=== PATIENT | male | born 1955 | race Caucasian/White ===

== ENCOUNTER 2017-03-22 09:51 | Day surgery (SDC) | payer BC, OTHER ==
--- NOTE | 2017-03-12 10:18 | HP ---
PREOPERATIVE HISTORY AND PHYSICAL: DATE OF ADMISSION: 03/22/17 PROVIDER: Sang Tai MD * (DICTATED BY GABRIELE OLIVEIRA) CHIEF COMPLAINT: Left foot pain. HISTORY OF PRESENT ILLNESS: Richie is a 61-year-old gentleman who has had ongoing complaints of pain at the medial eminence of his left forefoot. He has had a bunion for quite some time but he feels as though this has gotten much bigger and more painful. Footwear is hard to find. He is interested now in surgical intervention for correction of the problem. PAST MEDICAL HISTORY: Hypertension and asthma. PAST SURGICAL HISTORY: Two knee arthroscopies, bunionectomy on the right, tonsillectomy, total hip arthroplasty and carpal tunnel release. He reports no complications with the anesthesia with those procedures. CURRENT MEDICATIONS: 1. Atorvastatin. 2. Calcium 40 mg p.o. every day. 3. Ramipril 10 mg p.o. every day. 4. Viagra 100 mg by mouth as needed. 5. ProAir HFA 108 mcg inhaled two puffs every 6 hours as needed. 6. Zyrtec as needed. ALLERGIES: PENICILLIN, which causes rash. 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 He lives with his . He denies tobacco use. He drinks alcoholic beverages occasionally. REVIEW OF SYSTEMS: Constitutional: Negative for recent hospitalizations, fevers, chills, night sweats or weight loss. Head: Negative for headaches, lightheadedness, or balance problems. Cardiovascular: Negative for chest or arm pain with exertion, history of heart attack, heart murmur, heart palpitations. Positive for high blood pressure. Negative for embolism or deep vein thrombosis. Respiratory: Negative for chronic cough, shortness of breath with exertion. Positive for asthma. Negative for COPD. Gastrointestinal: Negative for heartburn, nausea, vomiting, diarrhea, constipation or GERD. Genitourinary: Negative for nighttime urination, frequency of urination, urinary tract infections or kidney problems. Musculoskeletal: Negative for chronic back pain or recent fractures. Skin: Negative for rashes, lesions, lumps or sores. Neurologic: Negative for seizures, stroke, epilepsy, depression or anxiety. Endocrine: Negative for diabetes or thyroid problems. Hematology: Negative for easy bleeding, bruising, or anemia. PHYSICAL EXAMINATION GENERAL: He is a well-developed, well-nourished, pleasant male in no acute distress at rest. He is alert and oriented x3, with appropriate mood and affect. VITAL SIGNS: The patient is 5 feet 8 inches, 269 pounds, blood pressure 124/82 , pulse is 68. HEENT: Normocephalic and atraumatic. Hearing and vision are grossly intact. NECK: His trachea is midline. RESPIRATORY: Lungs clear to auscultation bilaterally. No wheezes, rales, or rhonchi. CARDIOVASCULAR: Regular rate and rhythm. No murmurs, rubs or gallops. Normal S1 and S2. ABDOMEN: Soft, nondistended, nontender. Normal bowel sounds. EXTREMITIES: Exam of the left lower extremity, skin is intact without abrasions or open wounds. He has a hallux valgus deformity with some erythema over the first MTP joint but no breakdown of the skin. He has a neutral hindfoot alignment. He has a 5/5 strength and range of motion. His sensation to light touch is intact. He has 2+ dorsalis pedis pulse. IMAGING: Three views of the left foot show a prominent medial eminence with some mild hallux valgus deformity. There is no significant widening of the intermetatarsal angle. IMPRESSION: Left foot hallux valgus deformity. PLAN: The patient has to undergo left foot bunion repair with chevron osteotomy by Dr. Tai on 03/22/17. The risks, benefits, and postoperative course were discussed with the patient at length and he would like the patient proceed. Prescription for oxycodone was sent to his pharmacy for postoperative pain. All of his questions were answered to his full satisfaction. He is understanding to call should he develop any problems or concerns. GABRIELE OLIVEIRA [id number]/[facility] #: [id number] EULALIA
[~2017-03-22 09:51] MED LIST: Buffered Lidocaine 0.9% SYRIN* 5 ML/SYR SYRINGE INTRADERM ONE; Buffered Lidocaine 0.9% SYRIN* 5 ML/SYR SYRINGE ONE; Clindamycin 900 MG IVPREMIX(* 900 MG/50 ML SDV IV ONE; KETAMINE HCL* 50 MG/ML 10 ML VIAL ONE; Lidocaine 2% PF * 5 ML VIAL ONE; Midazolam* 1 MG/ML 2 ML VIAL (2 MG) ONE; Propofol* 10 MG/ML 20 ML BTL IV PUSH ONE; Propofol* 500 MG/50 ML BTL ONE; fentaNYL* 50 MCG/ML 2 ML VIAL (100 MCG VIAL) ONE
[2017-03-22] MEDS ORDERED: Bupivacaine 0.5% SDV PF* 30 ML VIAL ONE (10:40)
[2017-03-22] MEDS ORDERED: HYDROmorphone INJ* 1 MG/ML CARPUJECT SYRINGE IV PRN (11:50)
[2017-03-22] MEDS ORDERED: oxyCODONE/Acetamin 5/325 MG* TAB PO PRN (11:50)
[2017-03-22] MEDS ORDERED: Ondansetron INJ* 2 MG/ML VIAL IV PRN (11:50)
[2017-03-22] MEDS ORDERED: Acetaminophen TAB* 325 MG PO PRN (11:50)
[2017-03-22] MEDS ORDERED: fentaNYL* 50 MCG/ML 2 ML VIAL (100 MCG VIAL) IV PRN (11:50)
[2017-03-22] MEDS ORDERED: Ibuprofen TAB* 600 MG PO PRN (11:50)
[2017-03-22] MEDS ORDERED: Ondansetron INJ* 2 MG/ML VIAL ONE (11:53)
[2017-03-22] MEDS ORDERED: Ketorolac INJ* 30 MG/ML 1 ML VIAL ONE (11:53)
[2017-03-22 12:48] VITALS: BP 135/81
--- NOTE | 2017-03-23 08:00 | OP ---
DATE OF OPERATION: 03/22/17 - [facility] DATE OF : 55 SURGEON: Sang Tai MD MANAGER ROOFING: Sumaya Ramirez PA-C ANESTHESIOLOGIST: Rody Diallo MD ANESTHESIA: MAC PRE-OP DIAGNOSIS: Left hallux valgus painful. 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 OPERATIVE PROCEDURE: Debridement gout deposit and Abdalla bunion repair. DESCRIPTION OF PROCEDURE: The patient was taken to the operating room where dorsal longitudinal incision was made in the first webspace. Through this incision, we released the adductor tendon and created a lateral capsulotomy and incised over the dorsal aspect of the lateral metatarsal. This wound was then closed with 3-0 Vicryl and 4-0 nylon. The medial longitudinal incision was made over the medial eminence with dorsal plantar flap raised to protect the dorsal and medial plantar cutaneous nerves. We incised transversally at the joint level and carried this incision across the top proximally in L-shaped fashion. We flipped the capsule plantarward and noticed a large tophaceous deposit around the medial eminence. This was debrided with a #15 blade and thorough irrigation. We removed a copious amount of medial eminence with microsagittal saw, sent this to pathology along with the tophaceous deposit. Because the involved in this area I elected not to do the osteotomy. He had obtained a nice correction at this point anyway. We removed redundant medial capsule repairing this with 0 Vicryl sutures, and 2-0 Vicryl for the subcu, and 3-0 nylon for the skin, and compression dressing applied. [id number]/[facility] #: [id number] [facility]
== END 2017-03-22 13:13 | disposition home or self-care (01) ==
LOC: OR 09:51
PROVIDERS: ATTEND Orthopaedic Surgery
DX: M20.12 Hallux valgus (acquired), left foot (principal); M1A.0721 Idiopathic chronic gout, left ankle and foot, with tophus (tophi); I10 Essential (primary) hypertension; J45.909 Unspecified asthma, uncomplicated; E78.5 Hyperlipidemia, unspecified; Z88.0 Allergy status to penicillin
CPT/HCPCS: 88304; 88311; J1885; J2250; J2405; J2704; J3010

== ENCOUNTER 2017-06-23 10:45 | Day surgery (SDC) | payer BC, OTHER ==
[~2017-06-23 10:45] MED LIST changes: -Buffered Lidocaine 0.9% SYRIN* 5 ML/SYR SYRINGE ONE; -Clindamycin 900 MG IVPREMIX(* 900 MG/50 ML SDV IV ONE; -KETAMINE HCL* 50 MG/ML 10 ML VIAL ONE; -Lidocaine 2% PF * 5 ML VIAL ONE; -Midazolam* 1 MG/ML 2 ML VIAL (2 MG) ONE; -Propofol* 10 MG/ML 20 ML BTL IV PUSH ONE; -Propofol* 500 MG/50 ML BTL ONE; -fentaNYL* 50 MCG/ML 2 ML VIAL (100 MCG VIAL) ONE
[2017-06-23] MEDS ORDERED: Buffered Lidocaine 0.9% SYRIN* 5 ML/SYR SYRINGE ONE (10:51)
[2017-06-23] MEDS ORDERED: Clindamycin 900 MG IVPREMIX(* 900 MG/50 ML SDV IV ONE (10:51)
[2017-06-23] MEDS ORDERED: Midazolam* 1 MG/ML 2 ML VIAL (2 MG) ONE (12:18)
[2017-06-23] MEDS ORDERED: EPINEPHRINE 1 MG/ML 1 ML VIAL ONE ×3 (12:38→14:21)
[2017-06-23] MEDS ORDERED: EPINEPHrine SYR 0.1 MG/ML* (1:10,000) SYRINGE ONE (12:38)
[2017-06-23 19:41] VITALS: BP 154/89
--- NOTE | 2017-06-30 03:37 | OP ---
DATE OF OPERATION: 06/23/17 [facility] DATE OF : 55 SURGEON: Jose Woodall MD CAT SITTER: GABRIELE Stanford. A physician orthopaedic physician assistant was required for the length of the procedure for positioning, assistance with instrumentation, and closure. ANESTHESIOLOGIST: Dr. Ortiz. ANESTHESIA: General anesthesia, regional interscalene block anesthesia. PRE-OP DIAGNOSES: 1. Left shoulder massive rotator cuff tear. 2. Left shoulder acromioclavicular joint arthritis. 3. Left shoulder subacromial impingement. 4. Left shoulder possible proximal biceps tendinosis. POST-OP DIAGNOSES: 1. Left shoulder massive rotator cuff tendon tear. 2. Left shoulder acromioclavicular joint osteoarthritis. 3. Left shoulder subacromial impingement. 4. No biceps tendinosis, left shoulder. No superior labral tear. OPERATIVE PROCEDURES: 1. Left shoulder arthroscopic rotator cuff tendon repair, massive, supraspinatus, infraspinatus. 2. Left shoulder arthroscopic subacromial decompression. 3. Left shoulder arthroscopic distal clavicle resection. 4. Modifier 22. I will apply this code to the billing for this procedure due to the significant difficulty of the rotator cuff repair given the retracted, atrophied nature of the patient's rotator cuff. Much dissection of the rotator cuff was required as well as 2 temporary traction stitches, followed by 4 anchors. ANTIBIOTICS: Clindamycin 900 mg IV. IV FLUIDS: Lactated Ringer's 1600 cc. COMPLICATIONS: None. SPECIMEN: None. IMPLANTS: Three Mitek Jed and Jed 5.5 mm triple loaded suture anchors. One Mitek 5.5 mm knotless anchor. ESTIMATED BLOOD LOSS: Minimal. 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 See history and physical and prior clinic notes for complete history. The patient responded insufficiently to the nonoperative management and opted for surgical treatment. Interestingly, the patient had a history of spontaneous distal biceps tendon rupture on this left side about the elbow. We spoke about evaluation and treatment of the biceps tendon. This was likely going to be treated with biceps release, but only as needed. Discussed risks and potential complications of surgery preoperatively. These included bleeding, infection, nerve or blood vessel injury, shoulder pain, stiffness, osteoarthritis, rotator cuff rerupture, hardware complications. Given the retracted nature of this patient's rotator cuff tear and some fatty infiltration of his muscle, there were concerns about the possible repairability of the tendon. The patient's tear is minor, was noted not to be torn, but was noted to have complete infiltration with fat, atrophy. DESCRIPTION OF PROCEDURE: Preoperatively in preoperative holding, consent was signed by the patient. Operative extremity was marked in preoperative holding. The patient was brought back to the operating room and had an inter-scalene regional nerve block performed by Dr. Ortiz. The patient was sedated and intubated. He was converted to the lateral decubitus position with the left shoulder up. Axillary roll was placed. All bony prominences were padded. Beanbag was insufflated. Shoulder was placed in the appropriate position of forward flexion and abduction with longitudinal traction with 15 pounds of weight. The left shoulder was prepped with ChloraPrep and then draped. Surgical time- out was performed. The glenohumeral joint was entered with 25 cc to 30 cc of normal saline. I then established a posterior glenohumeral joint portal using standard technique. Diagnostic arthroscopy was commenced. The patient had some wear of the articular cartilage in the glenohumeral joint. No clear superior labral tear or biceps tendinosis present. Easily I could view into the subacromial space and there was visible and massive rotator cuff tear. No subscapularis tear was noted and I visualized in a variety of positions in the humeral head. An anterior glenohumeral joint portal was established under direct visualization. I entered an arthroscopic probe as well as an arthroscopic shaver through the anterior portal and used this to improve my visualization of the subscapularis, which again confirmed no tear. I probed the superior labrum and the biceps and found no injury. Therefore, this was not treated. No loose bodies. No significant labral tears. I removed instruments and replaced my posterior cannula just under the acromion. I placed a 7-mm Mitek plastic cannula into the subacromial space anteriorly. I created a lateral subacromial portal under direct visualization and used an arthroscopic shaver brought in from laterally to debride subacromial bursitis. The patient actually had intact the anterior aspect of his supraspinatus tendon. This was a surprise as I had not appreciated this on MRI imaging preoperatively. However, he had a massive tear of the posterior supraspinatus and much of the infraspinatus present. The patient had some posteroinferior rotator cuff present, but it seemed very wispy and unsubstantial. This would be consistent with the quality of the tissue of the teres minor visualized on preoperative MRI imaging. The patient did have supraspinatus and infraspinatus that had retracted to a medial to the glenoid. I created a posterolateral portal and visualized alternatively through the posterior, posterolateral, and lateral portal. I spent a considerable amount of time fraying up the retracted rotator cuff tendon tissue. I did so using a switching stick, an arthroscopic shaver, and a vapor device. Some minimal bleeding was encountered superior to the rotator cuff tendon and muscle, which I used vapor electrocautery to stop. I placed 2 traction stitches in the retracted rotator cuff tendon tissue. I placed that through my lateral subacromial portal site and through an anterolateral subacromial portal that I created. With the traction stitches placed and my orthopaedic physician assistant pulling on traction, I was able to continue to free up the rotator cuff tendon tissue. This rotator cuff tendon tissue was notable for its relative lack of mobility versus the rotator cuff tendons I have encountered in the past, retracted similarly. I debrided a significant amount of bursa superior to the tendon and there was clearly no geometry of the tear not appreciated. With the traction stitch in place, I could tell that the tendon could barely be lateralized to the humeral head, was clearly under some tension, but I decided to attempt a repair rather than knot. At this point, I considered a side-to- side stitch but I knew that that would significantly tighten the shoulder. The patient did not have much anterior supraspinatus intact and his posteroinferior cuff tissue seemed to be a very poor quality. I created a posterolateral skin incision and placed through it a rotator cuff anchor, 5.5 mm after punching the bone. This was placed in the medial most aspect of the rotator cuff tendon footprint of the greater tuberosity. This first anchor was placed anteriorly to where my traction stitches were bringing the cuff to bone. It should be stated that prior to this commencement of my rotator cuff repair, I had debrided the greater tuberosity footprint with an arthroscopic shaver and then stephanie. I had also performed my subacromial decompression, removing the inferior hook of the anterior aspect of the acromion with a stephanie, removing at least 6 mm of bone. That was done working through the lateral subacromial portal. Back to my rotator cuff repair. I placed that first suture anchor. I then placed 3 horizontal mattress stitches in the rotator cuff tissue using the Expressew Mitek device. I tied these stitches as I went. I left the sutures uncut, anticipating the use of a lateral row anchor. These first 3 stitches brought the tendon to bone. At this point, I took out the traction stitches and I placed a second rotator cuff tendon suture anchor, triple loaded, posterior to the first one in the medial most aspect of the rotator cuff footprint. I used an 3dim suture passer device to place either 2 or 3 horizontal mattress stitches in the rotator cuff tendon. The repair worked decently stable, although clearly under more tension than my standard rotator cuff tendon repair. At this point, I decided to place a lateral row anchor. It should be noted that I placed a 7-mm Mitek plastic cannula into a lateral portal to do my suture passing. I placed a lateral row anchor anterior and lateral to the first 2 suture anchors. I took 4 sutures from that medial row and tightened them nicely, applying a knotless 5.5 mm suture anchor anterior and lateral. This provided some more support. I next placed a fourth rotator cuff anchor, this one triple loaded. I placed that about the posterosuperior greater tuberosity and placed a simple stitch into the retracted tendon as well as a [id number] stitch or 2 to allow these converging rotator cuff tendon tissues to better oppose. The repair appeared stable with movement of the shoulder. With probing, the repair was not as watertight as is typically seen in my repairs, but this was an incredibly retracted taut tendon that we succeeded in bringing tendon to bone for a repair. With the rotator cuff tendon repair finished, I proceeded to the acromioclavicular joint. There was much bursitic tissue about it. I debrided that with vapor electrocautery. Then I proceeded to remove 8 mm at the distal end of the clavicle with an arthroscopic stephanie. Instruments and fluid were removed from the subacromial space. Skin incisions were closed with figure-eight stitches and figure-twelve stitches using nylon 4- 0 suture. Xeroform, 4x4s, ABDs, foam tape. Sling with abduction pillow. The patient was awakened and extubated and brought to the PACU. The patient was given a cooling unit postoperatively in the PACU. DISPOSITION: The patient was to be discharged home with Percocet as needed for pain control, aspirin for DVT prophylaxis, and Bactrim for infection prophylaxis. Physical therapy to start the following week. The patient will follow up with me in 10 to 14 days postoperatively for a wound check and removal of stitches. I spoke to the patient's about the length of surgery and the difficulty to repair given the retracted immobile tissue. The length of the surgery can correspond with increased soft tissue swelling about the shoulder and some swelling soft tissues moving down the arm and legs and I told the patient's to watch for that. The tautness of the repair means both postoperative stiffness and both postoperative rerupture are concerns. [id number]/[facility] #: [id number] MTDD
== END 2017-06-23 19:41 | disposition home or self-care (01) ==
LOC: OR 10:45
PROVIDERS: ATTEND Orthopaedic Surgery
DX: S46.012A Strain of muscle(s) and tendon(s) of the rotator cuff of left shoulder, initial encounter (principal); M75.42 Impingement syndrome of left shoulder; M19.012 Primary osteoarthritis, left shoulder; M75.22 Bicipital tendinitis, left shoulder; X50.0XXA Overexertion from strenuous movement or load, initial encounter; Y92.89 Other specified places as the place of occurrence of the external cause; Y99.0 Civilian activity done for income or pay; I10 Essential (primary) hypertension; E78.00 Pure hypercholesterolemia, unspecified; M10.9 Gout, unspecified
CPT/HCPCS: J0171; J2250

== ENCOUNTER 2017-09-28 08:01 | Emergency (ER) | payer BC ==
[2017-09-28 08:11] VITALS: BP 157/92
--- OUTSIDE RECORDS SUMMARY | 2017-09-28 08:11 | XMS REPORT ---
:1955 External Reference #:[id number] Author Organization [facility] Address [address] [address] Phone [phone] Care Team Providers Name Role Phone aZki Bang III, MD Primary Care Physician Unavailable Payers Type Date Identification Numbers Payment Provider Subscriber Commercial Policy Number: [id number] [facility] Richie Alicea PayID: [id number] [address] [place] [address] Workers Onset: 2013 Policy Number: State Insurance Richie Sultana Compensation [id number] [facility] Christopher Group Number: [id number] [address] [address] PayID: [place] [address] Workers Compensation Onset: 2013 Policy Number: [facility] Richie Alicea [id number] Ins. [facility] PayID: [id number] [facility] [address] [place], [place] Workers Compensation Effective: 2017 Policy Number: [facility] Richie Alicea [id number] Onset: 2017 Group Number: [id number] [address] [address] Group Name: [phone] [place] [address] [id number] Problems Date Description Provider Status Onset: 11/09/2013 Benign essential hypertension Zaki Bang M.D. Active Onset: 11/09/2013 Pure hypercholesterolemia Zaki Bang M.D. Active Onset: 06/18/2016 Essential hypertension Zaki Bang M.D. 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 Use Drinks 6 Alcoholic Beverages Per Week Smoking Patient has never smoked Exercise Type/Frequency Exercises sporadically Allergies, Adverse Reactions, Alerts Date Description Reaction Status Severity Comments 08/24/2013 Penicillin active Medications Medication Date Status Form Strength Qnty SIG Indications Ordering Provider Naproxen 04/08/ Active Tablets 375mg 30tab 1 by mouth M20.12 Sang 2016 s twice a day Rand Tai Atorvastatin 11/11/ Active Tablets 40mg 90tab 1 by mouth Zaki Ko Calcium 2016 s every day Rand Bang Ramipril 12/13/ Active Capsules 10mg 90cap Take 1 Zaki EPetra 2014 s Tablet By Beti, Mouth Once M.D. Daily Viagra / Active Tablets 100mg 12tab by mouth 0.5 Zaki E. 0000 s or 1 tab 1h Beti, before M.D. intercourse Proair HFA / Active Aerosol 108(90Base inhale 2 Unknown 0000 ) mcg/Act puffs by mouth every 6 hours if needed for wheezing Multi For Him / Active Tablets 1 by mouth Unknown 50+ 0000 every day Sulfamethoxazo 06/23/ Hx Tablets 800-160mg 10tab take one tab Jose le/Trimethopri 2016 - s by brian WATSON 07/05/ twice a day Jose C2017 for 5 days Percocet 06/21/ Hx Tablets 5-325mg 42tab 1 - 2 tabs Jose 2016 - s by mouth F 08/28/ every 4 - 6 Jose C2017 hours as needed for pain. Aspirin Ec 06/21/ Hx Tablets DR 325mg 30tab take 1 tab Jose 2016 - s by mouth F 08/28/ every day x 2017 14 days. with food. Bactrim DS 04/27/ Hx Tablets 800-160mg 28tab 1 by mouth Sang 2016 Wesly murray twice a day [place] 06/14/ Rand 2017 Oxycodone HCL 03/02/ Hx Tablets 5mg 40tab 1-2 tabs by Sang 2016 - mouth every [place] 04/08/ 4-6 hours as [place] 2017 needed for post op pain do not fill until 03/19/17 Ramipril / Hx 10mg 1 po qd Unknown 0000 - 2014 Lipitor / Hx Tablets 40mg 90tab 1 by mouth Zaki murray every day Beti 11/11/ Rand 2017 Immunizations CPT Code Status Date Vaccine Lot # [id number] Given 08/16/2014 Tdap - Tetanus/Diptheria/Acellular Pertussis Vital Signs Date Vital Result Comment 08/30/2017 Height 67 inches 5'7" Weight 287.00 lb Heart Rate 97 /min BP Systolic 141 mmHg BP Diastolic 88 mmHg Respiratory Rate 16 /min BMI (Body Mass Index) 44.9 kg/m2 08/02/2017 Height 67 inches 5'7" Weight 287.00 lb Heart Rate 68 /min BP Systolic 120 mmHg BP Diastolic 76 mmHg Respiratory Rate 16 /min Body Temperature 97.6 F Pain Level 2 BMI (Body Mass Index) 44.9 kg/m2 07/06/2017 Height 67 inches 5'7" Weight 284.00 lb Heart Rate 78 /min Respiratory Rate 14 /min Body Temperature 98.8 F Pain Level 2 BMI (Body Mass Index) 44.5 kg/m2 06/15/2017 Height 67 inches 5'7" Weight 284.00 lb Heart Rate 85 /min BP Systolic Sitting 145 mmHg BP Diastolic Sitting 100 mmHg Body Temperature 98.1 F O2 % BldC Oximetry 97 % BMI (Body Mass Index) 44.5 kg/m2 06/03/2017 Height 67 inches 5'7" Weight 270.00 lb Heart Rate 86 /min Respiratory Rate 15 /min Body Temperature 97.5 F Pain Level 2 BMI (Body Mass Index) 42.3 kg/m2 06/02/2017 Height 67 inches 5'7" Weight 266.00 lb Heart Rate 84 /min BP Systolic 120 mmHg BP Diastolic 80 mmHg Body Temperature 98.3 F Pain Level 0 BMI (Body Mass Index) 41.7 kg/m2 05/12/2017 Height 67 inches 5'7" Weight 266.00 lb BP Systolic 114 mmHg BP Diastolic 82 mmHg Respiratory Rate 20 /min Body Temperature 97.3 F Pain Level 0 BMI (Body Mass Index) 41.7 kg/m2 04/27/2017 Height 67 inches 5'7" Weight 266.00 lb Heart Rate 68 /min BP Systolic 119 mmHg BP Diastolic 81 mmHg Body Temperature 97.3 F Pain Level 0 BMI (Body Mass Index) 41.7 kg/m2 04/20/2017 Height 67 inches 5'7" Weight 266.00 lb BP Systolic 120 mmHg BP Diastolic 60 mmHg Respiratory Rate 16 /min Body Temperature 97.8 F Pain Level 1 BMI (Body Mass Index) 41.7 kg/m2 04/08/2017 Height 67 inches 5'7" Weight 266.00 lb Heart Rate 88 /min BP Systolic 130 mmHg BP Diastolic 88 mmHg Body Temperature 97.1 F Pain Level 0 BMI (Body Mass Index) 41.7 kg/m2 03/31/2017 Height 67 inches 5'7" Weight 266.00 lb Heart Rate 92 /min BP Systolic 156 mmHg BP Diastolic 82 mmHg Body Temperature 97.9 F BMI (Body Mass Index) 41.7 kg/m2 03/11/2017 Height 68.5 inches 5'8.50" Weight 266.00 lb Heart Rate 85 /min BP Systolic 132 mmHg BP Diastolic 81 mmHg Respiratory Rate 15 /min Pain Level 2 BMI (Body Mass Index) 39.9 kg/m2 03/02/2017 Height 68.5 inches 5'8.50" Weight 269.00 lb BP Systolic 122 mmHg BP Diastolic 84 mmHg Respiratory Rate 16 /min Pain Level 3 BMI (Body Mass Index) 40.3 kg/m2 02/23/2017 Height 68.5 inches 5'8.50" Weight 272.00 lb BP Systolic 131 mmHg BP Diastolic 84 mmHg Respiratory Rate 15 /min Pain Level 4 BMI (Body Mass Index) 40.8 kg/m2 02/04/2017 Height 68.5 inches 5'8.50" Weight 270.50 lb Heart Rate 68 /min BP Systolic 127 mmHg BP Diastolic 78 mmHg Body Temperature 98.2 F Pain Level 3 BMI (Body Mass Index) 40.5 kg/m2 06/18/2016 Height 67.5 inches 5'7.50" Weight 275.00 lb Heart Rate 79 /min BP Systolic Sitting 148 mmHg BP Diastolic Sitting 88 mmHg Body Temperature 97.8 F O2 % BldC Oximetry 97 % BMI (Body Mass Index) 42.4 kg/m2 02/24/2016 Weight 278.00 lb with shoes Heart Rate 90 /min BP Systolic Sitting 120 mmHg BP Diastolic Sitting 90 mmHg Body Temperature 96.6 F O2 % BldC Oximetry 97 % 04/22/2015 Height 67.5 inches 5'7.50" Weight 269.00 lb Pain Level 2 BMI (Body Mass Index) 41.5 kg/m2 12/13/2014 Height 67.5 inches 5'7.50" Weight 269.00 lb Heart Rate 76 /min BP Systolic Sitting 124 mmHg BP Diastolic Sitting 82 mmHg O2 % BldC Oximetry 96 % BMI (Body Mass Index) 41.5 kg/m2 01/18/2014 Height 67.5 inches 5'7.50" Weight 261.00 lb Heart Rate 68 /min BMI (Body Mass Index) 40.3 kg/m2 12/14/2013 Height 67.5 inches 5'7.50" Heart Rate 87 /min BP Systolic 128 mmHg BP Diastolic 102 mmHg 11/23/2013 Height 67.5 inches 5'7.50" Weight 216.00 lb Heart Rate 110 /min BP Systolic 121 mmHg BP Diastolic 77 mmHg BMI (Body Mass Index) 33.3 kg/m2 11/09/2013 Height 67.5 inches 5'7.50" Heart Rate 73 /min BP Systolic 154 mmHg BP Diastolic 88 mmHg 11/09/2013 Height 67.5 inches 5'7.50" Weight 261.00 lb Heart Rate 84 /min BP Systolic Sitting 154 mmHg BP Diastolic Sitting 80 mmHg Body Temperature 97.6 F O2 % BldC Oximetry 95 % BMI (Body Mass Index) 40.3 kg/m2 08/24/2013 Height 67 inches 5'7" Weight 266.00 lb Heart Rate 82 /min BP Systolic 145 mmHg BP Diastolic 97 mmHg BMI (Body Mass Index) 41.7 kg/m2 Results Test Date Test Result H/L Range Note Comp Metabolic Panel 06/17/2017 Sodium 137 mmol/L 133-145 Chloride 104 mmol/L 101-111 Co2 Carbon Dioxide 25 mmol/L 22-32 Glucose 98 mg/dL 70-100 Blood Urea Nitrogen 20 mg/dL 6-24 Creatinine 0.96 mg/dL 0.67-1.17 BUN/Creatinine Ratio 20.8 High 8-20 Calcium 8.9 mg/dL 8.6-10.3 Total Protein 6.7 g/dL 6.4-8.9 Albumin 4.0 g/dL 3.2-5.2 Globulin 2.7 g/dL 2-4 Albumin/Globulin Ratio 1.5 1-3 Total Bilirubin 0.60 mg/dL 0.2-1.0 Alkaline Phosphatase 72 U/L 34-104 Alt 27 U/L 7-52 Egfr Non- 79.6 >60 Egfr 102.4 >60 1 Potassium TNP mmol/L 3.5-5.0 2 Anion Gap 8 mmol/L 2-11 Ast TNP U/L 13-39 3 Laboratory test finding 06/17/2017 Uric Acid 6.9 mg/dL 4.4-7.6 Laboratory test finding 03/22/2017 Surgical Pathology SEE RESULT BELOW 4 Lipid Profile 08/05/2016 Triglycerides 191 mg/dL 5 (Trig/Chol/HDL) Cholesterol 204 mg/dL 6 HDL Cholesterol 48.8 mg/dL 7 LDL Cholesterol 117 mg/dL 8 Laboratory test finding 08/05/2016 Hepatitis C Antibody Nonreactive Nonreactive 9 Lyme Disease Serology Negative Negative 10 Lipid Profile (Trig/Chol/HDL) 04/21/2016 Triglycerides 213 mg/dL 11 Cholesterol 210 mg/dL 12 HDL Cholesterol 43.9 mg/dL 13 LDL Cholesterol 124 mg/dL 14 Comp Metabolic Panel 04/21/2016 Sodium 138 mmol/L 133-145 Potassium 4.6 mmol/L 3.5-5.0 Chloride 104 mmol/L 101-111 Co2 Carbon Dioxide 27 mmol/L 22-32 Anion Gap 7 mmol/L 2-11 Glucose 92 mg/dL 70-100 Blood Urea Nitrogen 23 mg/dL 6-24 Creatinine 1.08 mg/dL 0.67-1.17 BUN/Creatinine Ratio 21.3 High 8-20 Calcium 8.8 mg/dL 8.6-10.3 Total Protein 6.6 g/dL 6.4-8.9 Albumin 3.9 g/dL 3.2-5.2 Globulin 2.7 g/dL 2-4 Albumin/Globulin Ratio 1.4 1-3 Total Bilirubin 0.70 mg/dL 0.2-1.0 Alkaline Phosphatase 71 U/L 34-104 Alt 27 U/L 7-52 Ast 20 U/L 13-39 Egfr Non- 69.7 >60 Egfr 89.7 >60 15 Lipid Profile (Trig/Chol/HDL) 12/05/2014 Triglycerides 101 mg/dL 16 Cholesterol 185 mg/dL 17 HDL Cholesterol 44.5 mg/dL 18 LDL Cholesterol 120 mg/dL 19 Comp Metabolic Panel 12/05/2014 Sodium 137 mmol/L 133-145 Potassium 4.7 mmol/L 3.5-5.0 Chloride 104 mmol/L 101-111 Co2 Carbon Dioxide 29 mmol/L 22-32 Anion Gap 4 mmol/L 2-11 Glucose 92 mg/dL 70-100 Blood Urea Nitrogen 21 mg/dL 6-24 Creatinine 1.07 mg/dL 0.67-1.17 BUN/Creatinine Ratio 19.6 8-20 Calcium 8.8 mg/dL 8.6-10.3 Total Protein 6.7 g/dL 6.4-8.9 Albumin 4.2 g/dL 3.2-5.2 Globulin 2.5 g/dL 2-4 Albumin/Globulin Ratio 1.7 1-3 Total Bilirubin 0.80 mg/dL 0.2-1.0 Alkaline Phosphatase 73 U/L 34-104 Alt 33 U/L 7-52 Ast 27 U/L 13-39 Egfr Non- 70.7 >60 Egfr 91.0 >60 20 1 Because ethnic data is not always readily available, this report includes an eGFR for both -Americans and non- Americans. The National Kidney Disease Education Program (NKDEP) does not endorse the use of the MDRD equation for patients that are not between the ages of 18 and 70, are , have extremes of body size, muscle mass, or nutritional status, or are non- or non-. According to the National Kidney Foundation, irrespective of diagnosis, the stage of the disease is based on the level of kidney function: Stage Description GFR(mL/min/1.73 m(2)) 1 Kidney damage with normal or decreased GFR 90 2 Kidney damage with mild decrease in GFR 60-89 3 Moderate decrease in GFR 30-59 4 Severe decrease in GFR 15-29 5 Kidney failure <15 (or dialysis) 2 Specimen Hemolyzed. Result may not be valid. Unable to report test result due to hemolysis. 3 Unable to report test result due to hemolysis. 4 SEE RESULT BELOW Name: RICHIE ALICEA: [address]: Sang Tai MD Acct: [id number] Unit: [id number] AGE: 61 Location: OR Re03/22/17 SEX: M Status: LUIS SD SPEC: [id number] PETER: 03/22/17-[address]: Sang Tai MD REQ: [id number] RECD: 03/22/17 STATUS: SOUT _ ORDERED: Decal, LEVEL 3 FINAL DIAGNOSIS Left hallux, excision: -- Gouty tophus. -- Benign bone and cartilage with degenerative change. PRE-OPERATIVE DIAGNOSIS Left foot hallux valgus deformity GROSS DESCRIPTION The specimen is received in formalin labeled, Bonecut Left Hallux/Gout, and consists of a 2.0 x 1.6 by up to 0.4 cm ramos irregular bone fragment. The articular surface is shaggy and chalky ramos-white. [employer]os[employer] sections, one cassette following decalcification. Signed (signature on file) Whitney Moseley MD 1644 END OF REPORT * ML=Testing performed at Main Lab DEPARTMENT OF PATHOLOGY, [address] [place] [address] Kush Nunn M.D. Director [facility] # [id number] 5 Desirable <150 Borderline high 150-199 High 200-499 Very High >500 6 Desirable <200 Borderline high 200-239 High >239 7 Low <40 Desirable: 40-60 High: >60 8 Desirable: <100 mg/dL Near Optimal: 100-129 mg/dL Borderline High: 130-159 mg/dL High: 160-189 mg/dL Very High: >189 mg/dL 9 FASTING 10 Serologic response to B. burgdorferi infection is not detected, but cannot rule out early infection during which low or undetectable antibody levels to B. burgdorferi may be present. If clinically indicated, a new serum specimen should be submitted in 7-14 days. Test Performed by: [place] [address] Research And Development Scientist: Stevo Barillas II, M.D., Ph.D. 11 Desirable <150 Borderline high 150-199 High 200-499 Very High >500 12 Desirable <200 Borderline high 200-239 High >239 13 Low <40 Desirable: 40-60 High: >60 14 Desirable: <100 mg/dL Near Optimal: 100-129 mg/dL Borderline High: 130-159 mg/dL High: 160-189 mg/dL Very High: >189 mg/dL 15 Because ethnic data is not always readily available, this report includes an eGFR for both -Americans and non- Americans. The National Kidney Disease Education Program (NKDEP) does not endorse the use of the MDRD equation for patients that are not between the ages of 18 and 70, are , have extremes of body size, muscle mass, or nutritional status, or are non- or non-. According to the National Kidney Foundation, irrespective of diagnosis, the stage of the disease is based on the level of kidney function: Stage Description GFR(mL/min/1.73 m(2)) 1 Kidney damage with normal or decreased GFR 90 2 Kidney damage with mild decrease in GFR 60-89 3 Moderate decrease in GFR 30-59 4 Severe decrease in GFR 15-29 5 Kidney failure <15 (or dialysis) 16 Desirable <150 Borderline high 150-199 High 200-499 Very High >500 17 Desirable <200 Borderline high 200-239 High >239 18 Low <40 Desirable: 40-60 High: >60 19 Desirable: <100 mg/dL Near Optimal: 100-129 mg/dL Borderline High: 130-159 mg/dL High: 160-189 mg/dL Very High: >189 mg/dL 20 Because ethnic data is not always readily available, this report includes an eGFR for both -Americans and non- Americans. The National Kidney Disease Education Program (NKDEP) does not endorse the use of the MDRD equation for patients that are not between the ages of 18 and 70, are , have extremes of body size, muscle mass, or nutritional status, or are non- or non-. According to the National Kidney Foundation, irrespective of diagnosis, the stage of the disease is based on the level of kidney function: Stage Description GFR(mL/min/1.73 m(2)) 1 Kidney damage with normal or decreased GFR 90 2 Kidney damage with mild decrease in GFR 60-89 3 Moderate decrease in GFR 30-59 4 Severe decrease in GFR 15-29 5 Kidney failure <15 (or dialysis) Procedures Date CPT Code Description Status 06/23/2017 01547 Arthroscopy Shoulder,W/Rotator Cuff Repair Completed 06/23/2017 77605 Arthroscopy Shoulder,W/Rotator Cuff Repair Completed 06/23/2017 98255 Arthroscopy,Shoulder Decompression Of Subacromial Space Completed W/Acromio 06/23/2017 29813 Arthroscopy,Shoulder Decompression Of Subacromial Space Completed W/Acromio 06/23/2017 72941 Arthroscopy,Shoulder,Distal Claviculectomy Incl Dist Completed Articular SR 06/23/2017 22459 Arthroscopy,Shoulder,Distal Claviculectomy Incl Dist Completed Articular SR 06/15/2017 05504 EKG Tracing & Interpretation Completed 03/22/2017 47060 Hallux Valgus Correction (Tanmay Welsh,Jerrod) Completed 03/22/2017 05874 Hallux Valgus Correction (Tanmay Welsh,Jerrod) Completed 12/01/2013 05723 Carpal Tunnel Release Completed 12/01/2013 41038 Carpal Tunnel Release Completed Encounters Type Date Location Provider CPT E/M Dx Office Visit 06/15/2017 [facility] Internal Medicine Zaki Bang, 23946 Z01.810 4:20p - Denise Gordillo S46.012D I10 E78.00 M10.9 Office Visit 06/03/2017 9:15a [facility] Jose Stinson 37661 S46.012D Of Maureen Woodall MD S46.012D M75.42 M75.42 Office Visit 04/20/2017 3:30p [facility] Jose Stinson 33638 S46.012D Of Maureen Woodall MD M75.42 Office Visit 03/11/2017 1:30p [facility] Jose Stinson 04973 S46.012D Of Maureen Woodall MD S46.012D M75.42 M75.42 Office Visit 02/23/2017 8:00a [facility] Jose Stinson 31767 S46.012A Of Maureen Woodall MD S46.012A Office Visit 02/04/2017 8:00a [facility] [place], 99390 M20.12 Maureen Gordillo Office Visit 06/18/2016 3:00p [facility] Internal Medicine Zaki Bang, 93977 Z00.00 - Denise Gordillo I10 Z11.59 E78.2 S00.06xD Office Visit 02/24/2016 10:00a [facility] Internal Medicine Zaki Bang, 03258 Z02.89 - Denise Gordillo Office Visit 04/22/2015 9:10a [facility] Zohra Kim 62233 G56.01 Of Maureen Gordillo G56.01 Office Visit 12/13/2014 2:40p [facility] Internal Medicine Zaki Bang, 50484 V70.0 - Apoorva Gordillo 401.1 272.0 Office Visit 11/09/2013 11:15a [facility] Zohra Kim 70824 354.0 Maureen Gordillo 354.2 Office Visit 11/09/2013 9:00a [facility] Internal Medicine Zaki Bang, 43706 401.1 - Apoorva Gordillo 272.0 Plan of Care Future Appointment(s):09/28/2017 11:30 am - [facility]:20 am - Zaki Bang M.D. at [facility] Internal Medicine - Zvlhooiji27/26/2018 - Jose Woodall, MDS46.012D Strain of musc/tend the rotator cuff of left shoulder, subsFollow up:Follow up: 4 weeks
--- OUTSIDE RECORDS SUMMARY | 2017-09-28 08:11 | XMS REPORT ---
:1955 External Reference #:[id number] Author Organization [facility] Address [address] [address] Phone [phone] Care Team Providers Name Role Phone Zaki Bang III, MD Primary Care Physician Unavailable Payers Type Date Identification Numbers Payment Provider Subscriber Commercial Policy Number: [id number] [facility] Richie Alicea PayID: [id number] [address] [place] [address] Workers Onset: 2013 Policy Number: State Insurance Richie Sultana Compensation [id number] [facility] [employer] Number: [id number] [address] [address] PayID: [place] [address] Workers Compensation Onset: 2013 Policy Number: [facility] Richie Alicea [id number] Ins. [facility] PayID: [id number] [facility] [address] [place], [place] Workers Compensation Effective: 2017 Policy Number: [facility] Richie Alicea [id number] Onset: 2017 Group Number: [id number] [address] [address] Group Name: [id number] [place] [address] [place]: [id number] Problems Date Description Provider Status Onset: 11/09/2013 Benign essential hypertension Zaki Bang M.D. Active Onset: 11/09/2013 Pure hypercholesterolemia Zaki Bang M.D. Active Onset: 06/18/2016 Essential hypertension Zaki Bang M.D. 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 2014 s Tablet By Beti Mouth Once M.D. Daily Viagra / Active Tablets 100mg 12tab by mouth 0.5 Zaki E. 0000 s or 1 tab 1h Beti, before M.D. intercourse Proair HFA / Active Aerosol 108(90Base 8.500 inhale 2 Azki E. 0000 ) mcg/Act gm puffs by Beti mouth every M.D. 6 hours if needed for wheezing Multi For Him / Active Tablets 1 by mouth Unknown 50+ 0000 every day Sulfamethoxazo 06/23/ Hx Tablets 800-160mg 10tab take one tab Jose caballero/Trimethopri 2016 - by brian WATSON 07/05/ twice a day Jose C2017 for 5 days MD Vann 06/21/ Hx Tablets 5-325mg 42tab 1 - 2 tabs Jose 2016 - s by mouth F 08/28/ every 4 - 6 Jose C2017 hours as MD needed for pain. Aspirin Ec 06/21/ Hx Tablets DR 325mg 30tab take 1 tab Jose 2016 - s by mouth F 08/28/ every day x 2017 14 days. MD with food. Bactrim DS 04/27/ Hx Tablets 800-160mg 28tab 1 by mouth Sang 2016 Wesly murray twice a day Zaire 06/14/ M.DPetra 2017 Oxycodone HCL 03/02/ Hx Tablets 5mg 40tab 1-2 tabs by Sang 2016 - mouth every Zaire 04/08/ 4-6 hours as M.Carolina Cummins needed for post op pain do not fill until 03/19/17 Ramipril / Hx 10mg 1 po qd Unknown 0000 - 2014 Lipitor / Hx Tablets 40mg 90tab 1 by mouth Zaki Bolaños - s every day Beti 11/11/ Rand 2017 Immunizations CPT Code Status Date Vaccine Lot # [id number] Given 08/16/2014 Tdap - Tetanus/Diptheria/Acellular Pertussis Vital Signs Date Vital Result Comment 09/13/2017 Height 67 inches 5'7" Weight 292.00 lb Heart Rate 81 /min BP Systolic 132 mmHg sitting right arm BP Diastolic 80 mmHg sitting right arm O2 % BldC Oximetry 95 % BMI (Body Mass Index) 45.7 kg/m2 08/30/2017 Height 67 inches 5'7" Weight 287.00 [...] Test Date Test Result H/L Range Note Lipid Profile (Trig/Chol/HDL) 09/08/2017 Triglycerides 140 mg/dL 1, 2 Cholesterol 198 mg/dL 1, 3 HDL Cholesterol 55.9 mg/dL 1, 4 LDL Cholesterol 114 mg/dL 1, 5 Comp Metabolic Panel 06/17/2017 Sodium 137 mmol/L [...] Egfr Non- 79.6 >60 Egfr 102.4 >60 6 Potassium TNP mmol/L 3.5-5.0 7 Anion Gap 8 mmol/L 2-11 Ast TNP U/L 13-39 8 Laboratory test finding 06/17/2017 Uric Acid 6.9 mg/dL 4.4-7.6 Laboratory test finding 03/22/2017 Surgical Pathology SEE RESULT BELOW 9 Lipid Profile 08/05/2016 Triglycerides 191 mg/dL 10 (Trig/Chol/HDL) Cholesterol 204 mg/dL 11 HDL Cholesterol 48.8 mg/dL 12 LDL Cholesterol 117 mg/dL 13 Laboratory test finding 08/05/2016 Hepatitis C Antibody Nonreactive Nonreactive 14 Lyme Disease Serology Negative Negative 15 Lipid Profile (Trig/Chol/HDL) 04/21/2016 Triglycerides 213 mg/dL 16 Cholesterol 210 mg/dL 17 HDL Cholesterol 43.9 mg/dL 18 LDL Cholesterol 124 mg/dL 19 Comp Metabolic Panel 04/21/2016 Sodium 138 mmol/L [...] Egfr Non- 69.7 >60 Egfr 89.7 >60 20 Lipid Profile (Trig/Chol/HDL) 12/05/2014 Triglycerides 101 mg/dL 21 Cholesterol 185 mg/dL 22 HDL Cholesterol 44.5 mg/dL 23 LDL Cholesterol 120 mg/dL 24 Comp Metabolic Panel 12/05/2014 Sodium 137 mmol/L [...] Egfr Non- 70.7 >60 Egfr 91.0 >60 25 1 FASTING 10 HOUR 2 Desirable: <150 Borderline High: 150-199 High: 200-499 Very High: >500 3 Desirable: <200 Borderline High: 200-239 High: >239 4 Low: <40 Desirable: 40-60 High: >60 5 Desirable: <100 Near Optimal: 100-129 Borderline High: 130-159 High: 160-189 Very High: >189 6 Because ethnic data is not always readily [...] 15-29 5 Kidney failure <15 (or dialysis) 7 Specimen Hemolyzed. Result may not be valid. Unable to report test result due to hemolysis. 8 Unable to report test result due to hemolysis. 9 SEE RESULT BELOW Name: RICHIE ALICEA : [address]: Sang Tai MD Acct: [id number] Unit: [id number] AGE: 61 Location: OR Re03/22/17 SEX: M [place] [facility] [place]: [id number] PETER: 03/22/171151 [facility] DR: Sang Tai MD REQ: [id number] RECD: 03/22/[id number] STATUS: SOUT _ ORDERED: [facility], LEVEL 3 FINAL DIAGNOSIS Left hallux, excision: -- Gouty tophus. -- Benign bone and cartilage with degenerative change. PRE-OPERATIVE DIAGNOSIS Left foot hallux valgus deformity GROSS DESCRIPTION The specimen is received in formalin labeled, Bonecut Left Hallux/Gout, and consists of a 2.0 x 1.6 by up to 0.4 cm ramos irregular bone fragment. The articular surface is shaggy and chalky ramos-white. Entry Level Web Developer sections, one cassette following decalcification. Signed (signature on file) Whitney Moseley MD 1644 END OF REPORT * ML=Testing performed at Main Lab DEPARTMENT OF PATHOLOGY, [address] [place] [address] Kush Nunn M.D. Director [facility] # [id number] 10 Desirable <150 Borderline high 150-199 High 200-499 Very High >500 11 Desirable <200 Borderline high 200-239 High >239 12 Low <40 Desirable: 40-60 High: >60 13 Desirable: <100 mg/dL Near Optimal: 100-129 mg/dL Borderline High: 130-159 mg/dL High: 160-189 mg/dL Very High: >189 mg/dL 14 FASTING 15 Serologic response to B. burgdorferi infection is not detected, but cannot rule out early infection during which low or undetectable antibody levels to B. burgdorferi may be present. If clinically indicated, a new serum specimen should be submitted in 7-14 days. Test Performed by: [facility] - [address] [address] Specialist Employee Labor Relations: Stevo Barillas II, M.D., Ph.D. 16 Desirable <150 Borderline high 150-199 High [...] 15-29 5 Kidney failure <15 (or dialysis) 21 Desirable <150 Borderline high 150-199 High 200-499 Very High >500 22 Desirable <200 Borderline high 200-239 High >239 23 Low <40 Desirable: 40-60 High: >60 24 Desirable: <100 mg/dL Near Optimal: 100-129 mg/dL Borderline High: 130-159 mg/dL High: 160-189 mg/dL Very High: >189 mg/dL 25 Because ethnic data is not always readily [...] Procedures Date CPT Code Description Status 06/23/2017 82927 Arthroscopy Shoulder,W/Rotator Cuff Repair Completed 06/23/2017 28120 Arthroscopy Shoulder,W/Rotator Cuff Repair Completed 06/23/2017 75369 Arthroscopy,Shoulder Decompression Of Subacromial Space Completed W/Acromio 06/23/2017 59554 Arthroscopy,Shoulder Decompression Of Subacromial Space Completed W/Acromio 06/23/2017 34118 Arthroscopy,Shoulder,Distal Claviculectomy Incl Dist Completed Articular SR 06/23/2017 05985 Arthroscopy,Shoulder,Distal Claviculectomy Incl Dist Completed Articular SR 06/15/2017 74714 EKG Tracing & Interpretation Completed 03/22/2017 76426 Hallux Valgus Correction (Tanmay Welsh,Jerrod) Completed 03/22/2017 94244 Hallux Valgus Correction (Tanmay Welsh Mayo) Completed 12/01/2013 91877 Carpal Tunnel Release Completed 12/01/2013 07588 Carpal Tunnel Release Completed Encounters Type Date Location Provider CPT E/M Dx Office Visit 06/15/[address] [facility] Internal Medicine Zaki Bang, 77264 Z01.810 4:20p - Denise Gordillo S46.012D I10 E78.00 M10.9 Office Visit 06/03/2017 9:15a [facility] Jose Stinson 21361 S46.012D Of Maureen Woodall MD S46.012D M75.42 M75.42 Office Visit 04/20/2017 3:30p [facility] Jose Stinson 34654 S46.012D Of Maureen Woodall MD M75.42 Office Visit 03/11/2017 1:30p [facility] Jose Stinson 04004 S46.012D Of Maureen Woodall MD S46.012D M75.42 M75.42 Office Visit 02/23/2017 8:00a [facility] Jose Stinson 84970 S46.012A Of Maureen Woodall MD S46.012A Office Visit 02/04/2017 8:00a [facility] Of Sang Tai 75397 M20.12 Maureen Gordillo Office Visit 06/18/2016 3:00p [facility] Internal Medicine Zaki Bang, 25617 Z00.00 - Denise Gordillo I10 Z11.59 E78.2 S00.06xD Office Visit 02/24/2016 10:[address]a [facility] Internal Medicine Zaki Bang, 71528 Z02.89 - Denise Gordillo Office Visit 04/22/2015 9:10a [facility] Zohra Kim, 43038 G56.01 Of Maureen Gordillo G56.01 Office Visit 12/13/2014 2:40p [facility] Internal Medicine Zaki Bang, 20763 V70.0 - Apoorva Gordillo 401.1 272.0 Office Visit 11/09/2013 11:15a [facility] Of Zohramarisa Kim, 24875 354.0 Maureen Gordillo 354.2 Office Visit 11/09/2013 9:00a [facility] Internal Medicine Zaki Bang, 77300 401.1 - Apoorva Gordillo 272.0 Plan of Care Future Appointment(s):03/16/2018 9:00 am - Zaki Bang M.D. at [facility] Internal Medicine - Lexzjyohn45/27/2018 11:30 am - Jose Woodall MD at [facility] Of CPetraMJamshid09/13/2017 - Zaki Bang M.D.I10 Essential ( primary) hypertensionFollow up:6 months or prnE78.00 Pure hypercholesterolemia, acnfhndmevoG66.11 Encounter for screening for malignant neoplasm of colonReferral:Meir Diez MD, Gastroenterology
--- NOTE | 2017-09-28 09:14 | UC ---
Respiratory Complaint HPI - HPI Summary HPI Summary: 62 yo male with asthma requests a prescription for prednisone started wheezing about a week aog using his inhaler and it has not cleared non productive cough no CP or SOB - History of Current Complaint Chief Complaint: UCAsthma Stated Complaint: ASTHMA Time Seen by Provider: 09/28/17 09:07 Hx Obtained From: Patient Onset/Duration: Gradual Onset, Lasting Days Severity Initially: Mild Severity Currently: Mild Pain Intensity: 0 Pain Scale Used: 0-10 Numeric Character: Cough: Nonproductive Aggravating Factors: Nothing Alleviating Factors: Bronchodilator Associated Signs And Symptoms: Positive: Wheezing - Allergies/Home Medications Allergies/Adverse Reactions: Allergies Allergy/AdvReac Type Severity Reaction Status Date / Time Penicillins Allergy Intermediate Rash Verified 09/28/17 08:07 PMH/Surg Hx/FS Hx/Imm Hx Previously Healthy: Yes Endocrine History: Dyslipidemia Cardiovascular History: Hypertension Respiratory History: Asthma - Surgical History Surgical History: Yes Surgery Procedure, Year, and Place: RIGHT TOTAL HIP REPLACED-2009. MENISCECTOMY - BOTH KNEES. TOES SURGERIES- dEBRIDEMENT GOUT DEPOSIT AND NGUYEN BUNION REPAIR 03/2017. CARPAL TUNNEL RIGHT WRIST. TONSILS - Social History Alcohol Use: Weekly Alcohol Amount: 6-8 BEERS PER WEEK Substance Use Type: None Smoking Status (MU): Never Smoked Tobacco Have You Smoked in the Last Year: No Review of Systems Constitutional: Negative Skin: Negative Eyes: Negative ENT: Negative Respiratory: Cough Cardiovascular: Negative Gastrointestinal: Negative Genitourinary: Negative Motor: Negative Neurovascular: Negative Musculoskeletal: Negative Neurological: Negative Psychological: Negative Is Patient Immunocompromised?: No All Other Systems Reviewed And Are Negative: Yes Physical Exam Triage Information Reviewed: Yes Appearance: Well-Appearing, No Pain Distress, Well-Nourished Vital Signs: Initial Vital Signs Temp 99.5 F 09/28/17 08:09 Pulse 86 09/28/17 08:09 Resp 16 09/28/17 08:09 BP 157/92 09/28/17 08:09 Pulse Ox 98 09/28/17 08:09 Eye Exam: Normal Eyes: Positive: Conjunctiva Clear ENT: Positive: Hearing grossly normal. Negative: Nasal congestion, Nasal drainage, Trismus, Muffled voice, Hoarse voice, Sinus tenderness Dental Exam: Normal Neck: Positive: Supple, Nontender, No Lymphadenopathy Respiratory: Positive: No respiratory distress, No accessory muscle use, Wheezing - with forced expiration Cardiovascular: Positive: RRR, No Murmur Musculoskeletal: Positive: ROM Intact, No Edema Neurological: Positive: Alert Psychological Exam: Normal UC Diagnostic Evaluation - Laboratory O2 Sat by Pulse Oximetry: 98 - normal/not hypoxic Respiratory Course/Dx - Differential Dx/Diagnosis Provider Diagnoses: bronchospasm. suspect allergy related Discharge - Sign-Out/Discharge Documenting (check all that apply): Discharge - Discharge Plan Condition: Stable Disposition: HOME Prescriptions: predniSONE [Deltasone] 40 mg PO DAILY #10 tab Patient Education Materials: Bronchospasm (ED) Referrals: Zaki Bang MD [Primary Care Provider] - 6 Days (if not better) - Billing Disposition and Condition Condition: STABLE Disposition: HOME
== END 2017-09-28 09:15 | disposition home or self-care (01) ==
LOC: UCEAST 08:01
DX: J98.01 Acute bronchospasm (principal); J45.909 Unspecified asthma, uncomplicated; E78.5 Hyperlipidemia, unspecified; I10 Essential (primary) hypertension; Z96.641 Presence of right artificial hip joint; Z88.0 Allergy status to penicillin
CPT/HCPCS: 99212; G0463

== ENCOUNTER 2017-10-09 07:21 | Emergency (ER) | payer BC ==
--- OUTSIDE RECORDS SUMMARY | 2017-10-09 07:32 | XMS REPORT ---
:1955 External Reference #:[id number] Author Organization [facility] Address [address] [address] Phone [phone] Care Team Providers Name Role Phone Zaki Bang III, MD Primary Care Physician Unavailable Payers Type Date Identification Numbers Payment Provider Subscriber Commercial Policy Number: [id number] [facility] Richie Alicea PayID: [id number] [address] [place] [address] Workers Onset: 2013 Policy Number: State Insurance Richie Sultana Compensation [id number] [facility] [employer] Number: [id number] [address] [address] PayID: [place] [address] Workers Compensation Onset: 2013 Policy Number: [facility] Richie Alicea [id number] Ins. [facility] PayID: [id number] [facility] [address] [place], [place] Workers Compensation Effective: 2017 Policy Number: [facility] Richie Alicea [id number] Onset: 2017 Group Number: [id number] [address] [address] Group Name: [id number] [place] [address] [place]: [id number] Problems Date Description Provider Status Onset: 11/09/2013 Benign essential hypertension Zaki Bang M.D. Active Onset: 11/09/2013 Pure hypercholesterolemia Zaki Bang M.D. Active Onset: 06/18/2016 Essential hypertension Zaki Bang M.D. 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 0000 ) mcg/Act gm puffs by Beti mouth every M.D. 6 hours if needed for wheezing Multi For Him / Active Tablets 1 by mouth Unknown 50+ 0000 every day Prednisone / Active Tablets 20mg [place], 0000 MD Reed Sulfamethoxazo 06/23/ Hx Tablets 800-160mg 10tab take one tab Jose le/Trimethopri 2016 - by brian WATSON 07/05/ twice a day Jose C2017 for 5 days Percocpritesh 06/21/ Hx Tablets 5-325mg 42tab 1 - 2 tabs Jose 2016 - by mouth F 08/28/ every 4 - 6 Jose C, 2017 hours as needed for pain. Aspirin Ec 06/21/ Hx Tablets DR 325mg 30tab take 1 tab Jose 2016 - by mouth F 08/28/ every day x Jose C2017 14 days. with food. Bactrim DS 04/27/ Hx Tablets 800-160mg 28tab 1 by mouth Sang 2016 Wesly twice a day Zaire 06/14/ M.DPetra 2017 Oxycodone HCL 03/02/ Hx Tablets 5mg 40tab 1-2 tabs by Sang 2016 - mouth every Zaire 04/08/ 4-6 hours as M.Carolina Cummins needed for post op pain do not fill until 9/15/17 Ramipril / Hx 10mg 1 po qd Unknown 0000 - 2014 Lipitor / Hx Tablets 40mg 90tab 1 by mouth Zaki Jarrell s every day Beti 11/11/ Rand 2017 Immunizations CPT Code Status Date Vaccine Lot # [id number] Given 08/16/2014 Tdap - Tetanus/Diptheria/Acellular Pertussis Vital Signs Date Vital Result Comment 09/28/2017 Height 67 inches 5'7" Weight 292.00 lb Heart Rate 86 /min BP Systolic Sitting 124 mmHg BP Diastolic Sitting 76 mmHg Respiratory Rate 16 /min Pain Level 2 BMI (Body Mass Index) 45.7 kg/m2 09/13/2017 Height 67 inches 5'7" Weight 292.00 [...] [address]: Sang Tai MD Acct: [id number] Unit: [id number] AGE: 61 Location: OR Re03/22/17 SEX: M [place] [facility] [place] [id number] PETER: 03/22/17-[address]: Sang Tai MD REQ: [id number] RECD: 03/22/172879 STATUS: SOUT _ ORDERED: C[facility], LEVEL 3 FINAL DIAGNOSIS Left hallux, excision: -- Gouty tophus. -- Benign bone and cartilage with degenerative change. PRE-OPERATIVE DIAGNOSIS Left foot hallux valgus deformity GROSS DESCRIPTION The specimen is received in formalin labeled, Bonecut Left Hallux/Gout, and consists of a 2.0 x 1.6 by up to 0.4 cm ramos irregular bone fragment. The articular surface is shaggy and chalky ramos-white. Stitcher Feeder sections, one cassette following decalcification. Signed (signature on file) Whitney Moseley MD 1644 END OF REPORT * ML=Testing performed at Main Lab DEPARTMENT OF PATHOLOGY, [address] [place] [address] Kush Nunn M.D. Director [facility] # [id number] 10 Desirable <150 Borderline high 150-199 High [...] submitted in 7-14 days. Test Performed by: [facility] - [address] [address] [place] Turner: Stevo Barillas II, M.D., Ph.D. 16 Desirable [...] Procedures Date CPT Code Description Status 06/23/2017 69884 Arthroscopy Shoulder,W/Rotator Cuff Repair Completed 06/23/2017 79245 Arthroscopy Shoulder,W/Rotator Cuff Repair Completed 06/23/2017 16797 Arthroscopy,Shoulder Decompression Of Subacromial Space Completed W/Acromio 06/23/2017 60940 Arthroscopy,Shoulder Decompression Of Subacromial Space Completed W/Acromio 06/23/2017 17831 Arthroscopy,Shoulder,Distal Claviculectomy Incl Dist Completed Articular SR 06/23/2017 33056 Arthroscopy,Shoulder,Distal Claviculectomy Incl Dist Completed Articular SR 06/15/2017 84396 EKG Tracing & Interpretation Completed 03/22/2017 36921 Hallux Valgus Correction (Tanmay Welsh Mayo) Completed 03/22/2017 61406 Hallux Valgus Correction (Tanmay Welsh Mayo) Completed 12/01/2013 79191 Carpal Tunnel Release Completed 12/01/2013 31700 Carpal Tunnel Release Completed Encounters Type Date Location Provider CPT E/M Dx Office Visit 09/13/2017 10:20a [facility] Internal Medicine Zaki Bang, 37642 I10 - Denise Gordillo E78.00 Z12.11 Office Visit 06/15/2017 4:20p [facility] Internal Medicine Zaki Bagn, 75688 Z01.810 - Denise Gordillo S46.012D I10 E78.00 M10.9 Office Visit 06/03/2017 9:15a [facility] Jose Stinson 99690 S46.012D Of Maureen Woodall MD S46.012D M75.42 M75.42 Office Visit 04/20/2017 3:30p [facility] Jose Stinson 93209 S46.012D Of Maureen Woodall MD M75.42 Office Visit 03/11/2017 1:30p [facility] Jose Stinson 96308 S46.012D Of Maureen Woodall MD S46.012D M75.42 M75.42 Office Visit 02/23/2017 8:00a [facility] Jose Stinson 64090 S46.012A Of Maureen Woodall MD S46.012A Office Visit 02/04/2017 8:00a [facility] Of Sang Tai, 47147 M20.12 Maureen Gordillo Office Visit 06/18/2016 3:00p [facility] Internal Medicine Zaki Bang, 25634 Z00.00 - Denise Gordillo I10 Z11.59 E78.2 S00.06xD Office Visit 02/24/2016 10:00a [facility] Internal Medicine Zaki Bang, 55513 Z02.89 - Denise Gordillo Office Visit 04/22/2015 9:10a [facility] Zohra Kim, 59734 G56.01 Of Maureen Gordillo G56.01 Office Visit 12/13/2014 2:40p [facility] Internal Medicine Zaki Bang, 56462 V70.0 - Apoorva Gordillo 401.1 272.0 Office Visit 11/09/2013 11:15a [facility] Zohra Kim, 69756 354.0 Maureen Gordillo 354.2 Office Visit 11/09/2013 9:00a [facility] Internal Medicine Zaki Bang, 80698 401.1 - Apoorva Gordillo 272.0 Plan of Care Future Appointment(s):12/29/2017 2:15 pm - Jose Woodall MD at [facility] Maureen03/16/2018 9:00 am - Zaki Bang M.D. at [facility] Internal [facility] Denise
[2017-10-09 07:39] VITALS: BP 150/83
--- NOTE | 2017-10-09 08:19 | UC ---
Charlotte Martinez Rebecca, scribed for [facility],Nick King MD on 10/09/17 at 0803 . Respiratory Complaint HPI - HPI Summary HPI Summary: In Room: Pt is a 62 y/o M who presents to [facility] c/o wheezing, nonproductive cough and bronchospasms. He was evaluated by [facility] on 09/28 (about 1.5 weeks ago ) for similar symptoms that began after sanding and various housework and symptoms resolved after Prednisone Rx, returning 2 days ago. Pt has been using his inhaler both yesterday and today, usually 2x a day, without a spacer. Symptoms are worse at night, particularly the bronchospasms. Denies N/V/D. Has plans to schedule a followup appointment with Dr. Bang (PCP). PMHx seasonal allergies for which he has been taking Zyrtec. MD: Vital signs stable. Afebrile, pulse ox 96, BP is 150/83. Pt is on antihypertensive medication. Visit history includes visit on 09/28/2017 for asthma. Diagnosed with bronchospasm and put on prednisone, 40 mg a day for 10 days. At that time, patient had wheezing with forced expiration. Nurse's: Continued bronchospasm over the past month. Patient seen 09/28, prescribed steroid, states this helped but bronchospasm and cough returned shortly after finishing steroid. States cough unproductive. States worse at night. - History of Current Complaint Chief Complaint: UCRespiratory Stated Complaint: COUGH,WEEZING Time Seen by Provider: 10/09/17 07:54 Hx Obtained From: Patient Onset/Duration: Lasting Days - 2 days, Still Present Severity Currently: None Pain Intensity: 0 Pain Scale Used: 0-10 Numeric Character: Cough: Nonproductive Aggravating Factors: Other - At night Associated Signs And Symptoms: Positive: Wheezing Related History: Seasonal Allergies - Allergies/Home Medications Allergies/Adverse Reactions: Allergies Allergy/AdvReac Type Severity Reaction Status Date / Time Penicillins Allergy Intermediate Rash Verified 10/09/17 07:31 PMH/Surg Hx/FS Hx/Imm Hx Endocrine History: Dyslipidemia - HLD Cardiovascular History: Hypertension Respiratory History: Other Other Respiratory History: Seasonal allergies - Surgical History Surgical History: Yes Surgery Procedure, Year, and Place: RIGHT TOTAL HIP REPLACED-2009. MENISCECTOMY - BOTH KNEES. TOES SURGERIES- dEBRIDEMENT GOUT DEPOSIT AND NGUYEN BUNION REPAIR 03/2017. CARPAL TUNNEL RIGHT WRIST. TONSILS. Shoulder surgery 2017 - Family History Known Family History: Negative: Diabetes - Social History Alcohol Use: Weekly Alcohol Amount: 6-8 BEERS PER WEEK Substance Use Type: None Smoking Status (MU): Never Smoked Tobacco Have You Smoked in the Last Year: No Review of Systems Constitutional: Negative Skin: Negative Eyes: Negative ENT: Negative Respiratory: Cough, Other - Wheezing, bronchospasms Cardiovascular: Negative Gastrointestinal: Negative Genitourinary: Negative Motor: Negative Neurovascular: Negative Musculoskeletal: Negative Neurological: Negative Psychological: Negative All Other Systems Reviewed And Are Negative: Yes - Comments Additional Review of Systems Comments: POSITIVE: Nonproductive cough, wheezing, bronchospasms. NEGATIVE: N/V/D. Physical Exam - Summary Physical Exam Summary: Appearance: The patient is well-appearing, is in no pain distress, and is well- nourished. Eyes: Conjunctiva are clear. ENT: The hearing is grossly normal, the pharynx is normal, and the TMs are normal. There is no muffled or hoarse voice. Neck: The neck is supple and there is no lymphadenopathy. Respiratory: The chest is nontender. There are no retractions but there are expiratory wheezes. Cardiovascular: Heart is regular rate and rhythm. There is no murmur. Abdomen: The abdomen is soft and nontender. There is no organomegaly. Bowel sounds: present Musculoskeletal: Strength is intact. The patient moves all extremities. Neurological: The patient is alert. Psychological: The patient displays age appropriate behavior Skin: Negative for rashes. Triage Information Reviewed: Yes Vital Signs: Initial Vital Signs Temp 98.7 F 10/09/17 07:30 Pulse 84 10/09/17 07:30 Resp 18 10/09/17 07:30 BP 150/83 10/09/17 07:30 Pulse Ox 96 10/09/17 07:30 Vital Signs Reviewed: Yes UC Diagnostic Evaluation - Laboratory O2 Sat by Pulse Oximetry: 96 Respiratory Course/Dx - Course Course Of Treatment: Pt has diffuse bronchospasm. He is not acutely short of breath. I recommended that he use an albuterol inhaler and spacer, 2 puffs 3-4x a day, and I am also giving him Prednisone 20 mg 2x a day for 5 days. I also recommended that he follow up with his PCP to consider inhaled steroids. Dx bronchospasm. Hypertensive BP reading of 150/83; follow up with PCP within four weeks to check blood pressure. Medications have been included in the original chart and reviewed. Allergy noted. - Differential Dx/Diagnosis Provider Diagnoses: Bronchospasm Discharge - Sign-Out/Discharge Documenting (check all that apply): Discharge - Discharge - Discharge Plan Condition: Stable Disposition: HOME Prescriptions: Inhaler, Assist Devices [Aerochamber Mv] 1 mis XX Q6HR #1 mis predniSONE TAB* [Deltasone TAB*] 20 mg PO DAILY #10 tab MDD 2 Patient Education Materials: Bronchospasm (ED) Referrals: Zaki Bang MD [Primary Care Provider] - Additional Instructions: Your blood pressure reading today was 150/83, indicating HYPERTENSION. Follow- up with your primary care provider within 4 weeks for blood pressure readings and further evaluation. PLEASE SEEK CARE AT THE EMERGENCY DEPARTMENT IF SYMPTOMS WORSEN OR IF NEW SYMPTOMS DEVELOP. FOLLOW UP WITH YOUR PRIMARY CARE PHYSICIAN. WE DISCUSSED: 1. You lungs show bronchospasm. 2. Use inhaler and spacer: 2 puffs 3 to 4 times a day. 3. Prednisone pill, twice a day for 4 days. 4. Consider inhaled steroids. 5. Follow up with your doctor as planned. 6. Recheck at any time for increased shortness of breath, wheezing, chest pain or temperature. - Billing Disposition and Condition Condition: STABLE Disposition: HOME The documentation as recorded by the Charlotte loomis Rebecca accurately reflects the service I personally performed and the decisions made by , Nick Valenzuela MD.
== END 2017-10-09 08:20 | disposition home or self-care (01) ==
LOC: UCEAST 07:21
DX: J98.01 Acute bronchospasm (principal); E78.5 Hyperlipidemia, unspecified; I10 Essential (primary) hypertension; J30.2 Other seasonal allergic rhinitis; Z96.641 Presence of right artificial hip joint; Z88.0 Allergy status to penicillin
CPT/HCPCS: 99212; G0463

== ENCOUNTER 2019-03-29 19:50 | Inpatient (IN) | payer BC, OTHER ==
--- OUTSIDE RECORDS SUMMARY | 2019-03-29 19:59 | XMS REPORT | Continuity of Care Document ---
:1955 External Reference #:[id number] Author Name Shala Cuellar O.D. Address [address] [place] [address] Care Team Providers Name Role Phone Zaki Bang M.D. 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 Onset: 04/26/2015 Retinal drusen Shala Cuellar O.D. Onset: 04/26/2015 Social History Type Date Description Comments Sex Unknown ETOH Use Consumes 2 beers per day Tobacco Use Start: Unknown Patient has never smoked Recreational Drug Use Denies Drug Use Smoking Status Reviewed: 01/24/18 Patient has never smoked Allergies, Adverse Reactions, Alerts Active Allergies Reaction Severity Comments Date Penicillins 04/26/2015 Medications Active Medications SIG Qnty Indications Ordering Provider Date Preservision Areds 2 1 cap by mouth Shala Keane 01/23/2018 Areds 2 twice a day Fidelia Cuellar Capsules Atorvastatin Calcium Unknown 40mg Tablets Viagra Unknown 100mg Tablets Ramipril Unknown 10mg Capsules Multiple Vitamins Unknown Tablets Levocetirizine Unknown Dihydrochloride 5mg Tablets Breo Ellipta Unknown 200-25mcg/Inh Aerosol Mometasone Furoate Unknown 50mcg/Act Suspension Immunizations Description No Information Available Vital Signs Description No Information Available Results Description No Information Available Procedures Description No Information Available Medical Devices Description No Information Available Encounters Description No Information Available Assessments Date Code Description Provider 03/20/2019 H35.363 Drusen (degenerative) of macula, Shala Cuellar O.D. bilateral 03/20/2019 H25.13 Age-related nuclear cataract, bilateral Shala Cuellar O.D. Plan of Treatment 03/20/2019 - Shala Cuellar O.D.H35.363 Drusen (degenerative) of macula, bilateralComments:Smoking can increase the risk of developing or worsening any eye related disease, as well as affect your overall health. If you are a smoker , we strongly recommend that you quit.If you are not a smoker, we strongly recommend that you do not start. CONTINUE THE AREDS 2 QDTSEERP28.13 Age- related nuclear cataract, bilateralComments:You have been diagnosed with cataracts. If you are happy with your vision as it is now, then we willsee you at your next scheduled appointment. If you feel like your vision is getting worse before your scheduled appointment, please call [facility] at .Follow up:1 Year Follow Up OCT MAC You can expect to have your eyes dilated at your next visit. If Dr. Cuellar orders any additional testing, it may require extra time. We recommend that you bring sunglasses, as dilation drops often make you light sensitive until they wear off. We always recommend you bring someone to drive you home if you are uncomfortable driving with your eyes dilated. If you have any questions before your next visit, feel free to call our office at . Functional Status Description No Information Available Mental Status Description No Information Available Referrals Description No Information Available
--- OUTSIDE RECORDS SUMMARY | 2019-03-29 19:59 | XMS REPORT | Continuity of Care Document ---
:1955 External Reference #:[id number] Author Name Shala Cuellar O.D. Address [address] [place] [address] Care Team Providers Name Role Phone Zaki Bang M.D. 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 Onset: 04/26/2015 Retinal drusen Shala Cuellar O.D. Onset: 04/26/2015 Viral conjunctivitis Shala Cuellar O.D. Onset: 03/27/2019 Social History Type Date Description Comments Sex Unknown ETOH Use Consumes 2 beers per day Tobacco Use Start: Unknown Patient has never smoked Recreational Drug Use Denies Drug Use Smoking Status Reviewed: 03/27/19 Patient has never smoked Allergies, Adverse Reactions, Alerts Active Allergies Reaction Severity Comments Date Penicillins 04/26/2015 Medications Active Medications SIG Qnty Indications Ordering Provider Date Tobramycin-Dexamethasone 1 drop every 2 10ml B30.8 Shala Keane 03/27/2019 hours OD then Fidelia Cuellar 0.3-0.1% Suspension qid Preservision Areds 2 1 cap by mouth [...] Available Results Description No Information Available Procedures Date Code Description Status 03/20/2019 81485 Scanning Computerized Opthalmic Diagnostic Posterior Seg Completed Retina 03/20/2019 54015 Determination Of Refractive State Completed 03/20/2019 70327 Est Patient Comprehensive Exam Completed Medical Devices Description No Information Available Encounters Description No Information Available Assessments Date Code Description Provider 03/27/2019 B30.8 Other viral conjunctivitis Shaal Cuellar O.D. 03/20/2019 H35.363 Drusen (degenerative) of macula, Shala Cuellar O.D. bilateral 03/20/2019 H25.13 Age-related nuclear cataract, bilateral Shala Cuellar O.D. Plan of Treatment 03/27/2019 - Shala Cuellar O.D.B30.8 Other viral conjunctivitisNew Medication:Tobramycin-Dexamethasone 0.3-0.1 % - 1 drop every 2 hours OD then qidComments:START TOBRADEX DROPS EVERY 2 HOURS FOR 2 DAYS THEN 4XDAY RIGHT EYEFollow up:5 DAY RECHECK Functional Status Description No Information Available Mental Status Description No Information Available Referrals Description No Information Available
[2019-03-29] MEDS ORDERED: NS 0.9% 1000 ML** 1,000 ML IV ONE (20:01)
--- NOTE | 2019-03-29 20:56 | ED ---
Syncope/Near Syncope - HPI Summary HPI Summary: Patient is a 63 y/o M presenting to the ED after a syncopal episode. Pt was walking when he experienced syncopal episode and fell head first. The episode was witnessed by his friends who called EMS. Pt admits he drank a few beers before the episode. Pt has facial myalgia and blurry vision. Pt has an appointment on 03/31/2019 to be treated for viral conjunctivitis. He denies similar symptoms in the past, dizziness, abdominal pain or chest pain. Pt has a PMHx of asthma and notes that he has been somewhat SOB recently. Hx of hypercholesterolemia is also noted. He also notes bunion and shoulder surgery performed in the last 2 years. Pt states he has been sedentary due to the surgeries. He denies any cardiac events in the past. Patient claims he has an ectopic heartbeat. - History Of Current Complaint Chief Complaint: EDSyncope Time Seen by Provider: 03/29/19 20:34 Hx Obtained From: Patient Onset/Duration: Sudden Onset Context: Witnessed Activity At Onset: Other - Walking Associated Head Trauma: Yes Aggravating Factor(s): Nothing Alleviating Factor(s): Spontaneous Resolution Associated Signs And Symptoms: Head Trauma (Recent) - Fell head first, Pain - Facial pain, negative chest or abdominal pain, negative dizziness, Shortness Of Breath - has been SOB recently, Other - negative - dizziness - Allergies/Home Medications Allergies/Adverse Reactions: Allergies Allergy/AdvReac Type Severity Reaction Status Date / Time Penicillins Allergy Intermediate Rash Verified 10/09/17 07:31 Home Medications: Home Medications Fluticasone/Vilanterol MDI(NF) [Breo Ellipta MDI 200/25(NF)] 1 puff INH BID [History Confirmed 03/29/19] LevoCETirizine TAB (NF) [Xyzal TAB (NF)] 5 mg PO DAILY 03/29/19 [History Confirmed 03/29/19] Sildenafil (NF) [Viagra (NF)] 100 mg PO DAILY PRN 03/29/19 [History Confirmed ] Tobramycin/Dexameth OPTH.SUSP* [Tobradex 0.3-0.1%*] 1 drop RIGHT EYE QID [History Confirmed 03/29/19] Albuterol HFA INHALER* [Ventolin HFA Inhaler*] 2 puff INH Q4H PRN 03/30/19 [ History Confirmed 03/30/19] PMH/Surg Hx/FS Hx/Imm Hx Previously Healthy: Yes Endocrine/Hematology History: Denies: Hx Diabetes, Hx Thyroid Disease Cardiovascular History: Reports: Hx Hypercholesterolemia, Hx Hypertension - ON MEDICATION, Other Cardiovascular Problems/Disorders - HIGH CHOLESTEROL Denies: Hx Pacemaker/ICD Respiratory History: Denies: Hx Asthma, Hx Chronic Obstructive Pulmonary Disease (COPD) GI History: Denies: Hx Ulcer History: Denies: Hx Renal Disease Musculoskeletal History: Reports: Hx Arthritis - "ALL OVER", Other Musculoskeletal History - 2009-- RIGHT HIP REPLACED Sensory History: Reports: Hx Contacts or Glasses - GLASSES Denies: Hx Hearing Aid Opthamlomology History: Reports: Hx Contacts or Glasses - GLASSES Psychiatric History: Denies: Hx Panic Disorder - Cancer History Cancer Type, Location and Year: high cholesterol Hx Chemotherapy: No - Surgical History Surgical History: Yes Surgery Procedure, Year, and Place: RIGHT TOTAL HIP REPLACED-2009. MENISCECTOMY - BOTH KNEES. TOES SURGERIES- dEBRIDEMENT GOUT DEPOSIT AND NGUYEN BUNION REPAIR 03/2017. CARPAL TUNNEL RIGHT WRIST. TONSILS. Shoulder surgery 2017 Hx Anesthesia Reactions: No Infectious Disease History: No Infectious Disease History: Denies: Hx Clostridium Difficile, Hx Hepatitis, Hx Human Immunodeficiency Virus (HIV), Traveled Outside the [place] in Last 30 Days - Family History Known Family History: Negative: Diabetes - Social History Alcohol Use: Weekly Alcohol Amount: 6-8 BEERS PER WEEK Substance Use Type: Reports: Marijuana Substance Use Comment - Amount & Last Used: rare Smoking Status (MU): Never Smoked Tobacco Have You Smoked in the Last Year: No Review of Systems - ROS Summary Review of Systems Summary: Fluticasone/Vilanterol MDI(NF) [Breo Ellipta MDI 200/25(NF)] 1 puff INH BID [History Confirmed 03/29/19] LevoCETirizine TAB (NF) [Xyzal TAB (NF)] 5 mg PO DAILY 03/29/19 [History Confirmed 03/29/19] Sildenafil (NF) [Viagra (NF)] 100 mg PO DAILY PRN 03/29/19 [History Confirmed ] Tobramycin/Dexameth OPTH.SUSP* [Tobradex 0.3-0.1%*] 1 drop RIGHT EYE QID [History Confirmed 03/29/19] Positive: Blurred Vision Negative: Chest Pain Positive: Shortness Of Breath - recently Negative: Abdominal Pain Positive: Myalgia - Facial Neurological: Other - negative - dizziness Positive: Syncope All Other Systems Reviewed And Are Negative: Yes Physical Exam - Summary Physical Exam Summary: General: Well-developed, morbidly obese. MALE. No acute distress. HEENT: Normocephalic. Eyes: Conjuctiva normal, PERRL. Sub-conjunctival hemorrhage of right eye, extensive swelling and ecchymosis of right eye Ears: TMs within normal limits. Nares: (-) discharge, (-) erythema. Oropharynx: Clear, mucous membranes moist, (-) exudates. Neck: Soft, FROM, (-) lymphadenopathy, (-) thyromegaly, (-) JVD. Cardiovascular: Rate is irregularly irregular, (-) murmur, Lungs: Clear to auscultation bilaterally (-) wheezes, (-) rales, (-) rhonchi. Abdomen: Soft, non-tender, non-distended, (-) organomegaly, normal bowel sounds. Back: (-) CVA tenderness Extremities: +1 edema BLE Skin: Warm, dry, (-) rash. Neuro: Alert and oriented x3, no focal deficits. GCS 15. Psychiatric: Mood normal, affect normal. Triage Information Reviewed: Yes Vital Signs On Initial Exam: Initial Vitals Temp Pulse Resp BP Pulse Ox 97.1 F 136 20 157/104 96 03/29/19 19:54 03/29/19 19:54 03/29/19 19:54 03/29/19 19:54 03/29/19 19:54 Vital Signs Reviewed: Yes - Mena Coma Scale Best Eye Response: 4 - Spontaneous Best Motor Response: 6 - Obeys Commands Best Verbal Response: 5 - Oriented Coma Scale Total: 15 Diagnostics - Vital Signs Vital Signs Temp Pulse Resp BP Pulse Ox 03/29/19 20:00 136 26 95 03/29/19 19:59 136 19 157/104 95 03/29/19 19:58 136 29 95 03/29/19 19:54 97.1 F 136 20 157/104 96 - Laboratory Result Diagrams: 03/31/19 04:00 03/31/19 04:00 Lab Statement: Any lab studies that have been ordered have been reviewed, and results considered in the medical decision making process. - Radiology CXR Radiology Interpretation Completed By: ED Physician, Radiologist Summary of Radiographic Findings: CXR showed enlarged heart with increased interstitial markings, pending official report. Chest/Thoarax X-ray Radiology Interpretation Completed By: Radiologist Summary of Radiographic Findings: Chest/Thorax X-ray IMPRESSION: 1. No evidence of pulmonary embolus. 2. Bilateral septal thickening, likely representing interstitial pulmonary. edema. 3. Small, right greater than left , pleural effusions. 4. Cardiomegaly. Coronary artery disease. 5. Mildly enlarged mediastinal lymph nodes, nonspecific. Recommend correlation. with clinical history and prior studies. Followup CT could be performed in one. year to reassess if clinically indicated. Reviewed by ED physician. - CT Brain CT Summary of CT Findings: Brain CT IMPRESSION: No acute intracranial abnormality. Reviewed by ED physician. Cervical Spine CT CT Interpretation Completed By: Radiologist Summary of CT Findings: Cervical Spine CT IMPRESSION: 1. Multilevel degenerative changes, most pronounced at C5-6 and C6-7. 2. No acute fracture, subluxation, or destructive osseous lesion. Reviewed by ED physician. CHEST/THORAX CTA CT Interpretation Completed By: Radiologist Summary of CT Findings: CHEST/THORAX CTA IMPRESSION: 1. No evidence of pulmonary embolus. 2. Bilateral septal thickening, likely representing interstitial pulmonary. edema. 3. Small, right greater than left, pleural effusions. 4. Cardiomegaly. Coronary artery disease. 5. Mildly enlarged mediastinal lymph nodes, nonspecific. Recommend correlation. with clinical history and prior studies. Followup CT could be performed in one. year to reassess if clinically indicated. THIS REPORT WAS REVIEWED DR. THRASHER. - EKG 19:53 Cardiac Rate: Tachycardia - 135 BPM EKG Rhythm: Sinus Tachycardia ST Segment: Normal Ectopy: None Summary of EKG Findings: EKG at 19:53 reveals 135 BPM with sinus tachycardia, no acute changes, no ischemic changes, no STEMI. Reviewed and interpreted by Dr. Thrasher. 21:10 Cardiac Rate: Other Rate - 109 BPM EKG Rhythm: Atrial Flutter ST Segment: Normal Summary of EKG Findings: EKG at 21:10 reveals 109 BPM with atrial flutter, no acute changes, no ischemic changes, no STEMI. Reviewed and interpreted by Dr. Thrasher. Re-Evaluation - Re-Evaluation First Eval Re-Evaluation Time: 21:10 Comment: Patient is noted to be in aflutter, he is to be given cardizem IV. Course/Dx Course Of Treatment: Patient is a 63 y/o M presenting to the ED after a syncopal episode. Pt was walking when he experienced syncopal episode and fell head first. The episode was witnessed by his friends who called EMS. Pt admits he drank a few beers before the episode. Pt has facial myalgia and blurry vision. Pt has an appointment on 03/31/2019 to be treated for viral conjunctivitis. He denies similar symptoms in the past, dizziness, abdominal pain or chest pain. Pt has a PMHx of asthma and notes that he has been somewhat SOB recently. Hx of hypercholesterolemia is also noted. He also notes bunion and shoulder surgery performed in the last 2 years. Pt states he has been sedentary due to the surgeries. He denies any cardiac events in the past. Patient claims he has an ectopic heartbeat. Urine abnormal findings: urine specific gravity 1.049 H, urine protein 2+ A, urine ascorbic acid present serum alcohol 112 H. Bloodwork abnormal findings: WBC 10.9 H, RBC 4.41 L, Hbg 13.0 L , Hct 39 L, MCV 95 H, absolute neuts 8.5 H, INR 1.31 H, D-dimer 637 H, sodium 134 L, carbon dioxide 18 L, anion gap 12 H, Bun/Creatinine Radio 21.4 H, calcium 8.5 L, troponin I 0.18 H, and B-natriuretic peptide 635 H. EKG at 19: 53 reveals 135 BPM with sinus tachycardia, no acute changes, no ischemic changes , no STEMI. Reviewed and interpreted by Dr. Thrasher. EKG at 21:10 reveals 109 BPM with atrial flutter, no acute changes, no ischemic changes, no STEMI. Reviewed and interpreted by Dr. Thrasher. Patient is noted to be in aflutter, he is to be given cardizem IV. CXR showed enlarged heart with increased interstitial markings. Bloodwork abnormal findings: urine specific gravity 1.049 H, urine protein 2+ A, urine ascorbic acid present. Chest/Thorax CTA IMPRESSION: 1. No evidence of pulmonary embolus. 2. Bilateral septal thickening, likely representing interstitial pulmonary. edema. 3. Small, right greater than left, pleural effusions. 4. Cardiomegaly. Coronary artery disease. 5. Mildly enlarged mediastinal lymph nodes, nonspecific. Recommend correlation. with clinical history and prior studies. Followup CT could be performed in one. year to reassess if clinically indicated. Brain CT IMPRESSION: No acute intracranial abnormality. Cervical Spine CT IMPRESSION: 1. Multilevel degenerative changes, most pronounced at C5-6 and C6-7. 2. No acute fracture, subluxation, or destructive osseous lesion. During ED course, patient received fluids, diltiazem 125 mg in sodium chloride. Patient's case was discussed with Dr. Rosas, Dr. Rosas acceptterri for admission. Pt will be admitted to [facility] with a diagnosis of syncope, facial trauma, elevated troponin, and atrial fibrillation. - Diagnoses Provider Diagnoses: Facial trauma, Syncope, Elevated troponin, Atrial fibrillation - Physician Notifications Discussed Care of Patient With: Melvi Rosas Time Discussed With Above Provider: 23:55 Instructed by Provider To: Other - Patient's case was discussed with Dr. Rosas , Dr. Rosas accepts for admission. - Critical Care Time Critical Care Time: 30-74 min - 30 min Discharge ED - Sign-Out/Discharge Documenting (check all that apply): Patient Departure - Admit to [facility] All imaging exams completed and their final reports reviewed: Yes Patient Received Moderate/Deep Sedation with Procedure: No - Discharge Plan Condition: Stable Disposition: ADMITTED TO [facility] - Billing Disposition and Condition Condition: STABLE Disposition: Admitted to [facility] - Attestation Statements Document Initiated by Rahulibe: Yes Documenting Scribe: Jagdish Hoover Provider For Whom Aurelia is Documenting (Include Credential): Anai Thrasher MD. Scribe Attestation: Jagdish Martinez, scribed for Anai Thrasher MD. on 03/31/19 at 0523. Scribe Documentation Reviewed: Yes Provider Attestation: The documentation as recorded by the scribeJagdish accurately reflects the service I personally performed and the decisions made by me, Anai Thrasher MD. Status of Scribe Document: Viewed
[2019-03-29 21:00] LABS: ABS Basophils 0.1 10^3/ul (0-0.2); ABS Eosinophils 0.2 10^3/ul (0-0.6); ABS Lymphocytes 1.3 10^3/ul (1.0-4.8); ABS Monocytes 0.8 10^3/ul (0-0.8); ABS Neutrophils 8.5 10^3/ul (1.5-7.7); Eosinophil % 2.1 %; Hematocrit 39 % (42-52); Lymphocyte % 11.6 %; Mean Corpuscular HGB Conc 33 g/dL (31-36); Mean Corpuscular Hemoglobin 31 pg (27-31); Mean Corpuscular Volume 95 fL (80-94); Mean Platelet Volume 8.3 fL (7.4-10.4); Platelet Count 209 10^3/uL (150-450); Red Blood Count 4.14 10^6 /uL (4.18-5.48); Red Cell Distribution Width 15 % (10-15); White Blood Count 10.9 10^3/uL (3.5-10.8)
[2019-03-29 21:15] LABS: ALT 31 U/L (7-52); AST 27 U/L (13-39); Albumin 3.9 g/dL (3.2-5.2); Albumin/Globulin Ratio 1.6 (1-3); Alkaline Phosphatase 104 U/L (34-104); Anion Gap 12 mmol/L (2-11); BUN/Creatinine Ratio 21.4 (8-20); Blood Urea Nitrogen 24 mg/dL (6-24); CO2 Carbon Dioxide 18 mmol/L (22-32); Calcium 8.5 mg/dL (8.6-10.3); Chloride 104 mmol/L (101-111); EGFR African American 80.1 (>60); EGFR Non-African American 66.2 (>60); Globulin 2.5 g/dL (2-4); Glucose 99 mg/dL (70-100); Sodium 134 mmol/L (135-145); Total Protein 6.4 g/dL (6.4-8.9)
[2019-03-29] MEDS ORDERED: Diltiazem IV VIAL* 125 MG in NS 0.9% 100 ML* 100 ML IV ONE (21:16)
[2019-03-29 21:20] LABS: Alcohol 112 mg/dL (<10); INR 1.31 (0.82-1.09)
[2019-03-29 21:22] LABS: Troponin I 0.18 ng/mL (<0.04)
[2019-03-29 21:36] LABS: TSH (Thyroid Stimulating Horm) 2.56 mcIU/mL (0.34-5.60)
[2019-03-29] MEDS ORDERED: Iodixanol* (CONTRAST) 320 MG/ML 100 ML SDV IV ONE (22:02)
[2019-03-29 23:21] LABS: Urine Appearance Clear; Urine Bacteria Absent (Absent); Urine Bilirubin Negative (Negative); Urine Blood Negative (Negative); Urine Color Yellow; Urine Glucose Negative (Negative); Urine Ketones Negative (Negative); Urine Nitrite Negative (Negative); Urine Protein 2+(100 mg/dL) (Negative); Urine Red Blood Cell Absent (Absent); Urine Specific Gravity 1.049 (1.010-1.030); Urine Urobilinogen Negative (Negative); Urine White Blood Cell Absent (Absent)
[2019-03-29 23:33] LABS: Urine Benzodiazepine Screen None Detected (None Detect); Urine Opiates Screen None Detected (None Detect)
[2019-03-30] MEDS ORDERED: Metoprolol Tartrate TAB* 25 MG PO ONE (00:39)
[2019-03-30] MEDS ORDERED: Albuterol HFA INHALER* 8 gm MDI INH PRN (00:46)
[2019-03-30] MEDS ORDERED: Furosemide IV* 10 MG/ML 2 ML VIAL (20 MG) IV ONE (01:03)
[2019-03-30 01:43] LABS: Troponin I 0.17 ng/mL (<0.04)
[2019-03-30] MEDS: Apixaban* 5 MG TAB PO SCH ×2 (02:36→10:03)
--- NOTE | 2019-03-30 04:34 | HP ---
CC: Dr. Zaki Bang * HISTORY AND PHYSICAL: DATE OF ADMISSION: 03/30/19 PROVIDER: Cesilia Riggins NP PRIMARY CARE PROVIDER: Dr. Zaki Bang. ATTENDING PHYSICIAN: Dr. Melvi Rosas * (dictated by Cesilia Riggins NP). CHIEF COMPLAINT: Syncope. HISTORY OF PRESENT ILLNESS: Mr. White is a 63-year-old male with past medical history of hypertension, hyperlipidemia, and asthma, who presents to the emergency room today after a syncopal episode. The patient reports that over the last few weeks, he has been feeling more short of breath, particularly with exertion and has been feeling overall quite tired. He and his have also noted that his abdomen looks more distended than usual. Today, the patient and his went out last evening for drinks. The patient had 2 beers and was walking out of the bar, he walked down 2 or 3 steps and then according to his , fell face first onto the ground. They had been conversing normally just prior to the syncopal episode and there were no prodromal symptoms. She reports that he lost consciousness for approximately 2 minutes and when he woke , he was able to sit himself up. At this point, the patient's only complaint is right- sided facial pain secondary to the fall. Vision in the right eye is somewhat impaired, although that is secondary to his falling. He denies any chest pain, dizziness, or headache or focal weakness. In the emergency room, the patient was noted to be tachycardic on arrival with heart rates in the 130s. EKG was done which was initially thought to be sinus tachycardia, although a second EKG was done and the patient was noted to be in atrial flutter. CT of the cervical spine and brain CT were unremarkable for any acute injury. The patient additionally had a chest, thorax CTA, which was unremarkable for pulmonary embolus, though did show interstitial pulmonary edema and small bilateral pleural effusion. The patient was given 1 dose of IV diltiazem which did improve heart rate into the 90s to 110s. The hospitalist service was asked to evaluate for admission. PAST MEDICAL HISTORY: 1. Hypertension. 2. Hyperlipidemia. 3. Asthma. PAST SURGICAL HISTORY: 1. Right total hip arthroplasty. 2. Bilateral meniscus repair. 3. Tonsillectomy. 4. Shoulder surgery. 5. Right wrist carpal tunnel release. 6. Multiple toe surgeries. 7. Bunionectomy. MEDICATIONS: 1. Albuterol MDI 2 puffs q.4 hours p.r.n. shortness of breath, wheezing. 2. Atorvastatin 40 mg p.o. daily. 3. Breo Ellipta 200/25 one puff b.i.d. 4. Levocetirizine 5 mg p.o. daily. 5. Multivitamin 1 tab p.o. daily. 6. Ramipril 10 mg p.o. daily. 7. Sildenafil 100 mg p.o. daily p.r.n. erectile dysfunction. 8. Tobramycin/dexamethasone 0.3-0.1% 1 drop right eye 4 times a day. ALLERGIES: PENICILLIN. FAMILY HISTORY: Mother had a PFO and of natural causes. Father of sepsis. SOCIAL HISTORY: The patient denies any tobacco or recreational drug use. He drinks approximately 9 beers per week. 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 He lives at home with his Shannen, who will be his surrogate decision maker in the event he is unable to make his own decisions. REVIEW OF SYSTEMS: An 11-point review of systems was performed and all the pertinent positive and negative findings are in the HPI. All other systems are negative. PHYSICAL EXAMINATION GENERAL: Mr. White is a well-developed, well-nourished, obese male, sitting in bed, in no acute distress. He appears his stated age. VITAL SIGNS: Temp 97.1, heart rate 99, respiratory rate 26, oxygen saturation 98 % on room air, blood pressure 111/86. HEENT: Head is atraumatic, normocephalic. Right visual field impaired secondary to right eye edema. Left visual field intact. Pupils equal, round, and reactive to light and accommodation. There is significant edema and bruising to the right eye. Oral mucous membranes moist. NECK: Thyroid not palpable. Trachea midline. RESPIRATORY: Symmetrical chest expansion. No chest wall deformities. Lungs clear to auscultation throughout. No rhonchi, wheezes, or rubs. CARDIOVASCULAR: Irregular rhythm. S1, S2 present. No murmurs, rubs, or gallops. No JVD. ABDOMEN: Distended, but soft, nontender to palpation. Bowel sounds are normoactive throughout. EXTREMITIES: Skin is warm and smooth bilaterally. No edema. No clubbing or cyanosis. Pedal pulses 2+ bilaterally. NEURO: Awake, alert, and oriented x4. Cranial nerves II through XII grossly intact. Moves all extremities. SKIN: Again, there is significant bruising to the right eye. There are additionally abrasions to the right knee. DIAGNOSTIC STUDIES/LAB DATA: WBC 10.9, RBC 4.14, hemoglobin 13.0, hematocrit 39, platelets 209. INR 1.31. Sodium 134, potassium 4.0, chloride 104, carbon dioxide 18. BUN 24, creatinine 1.12. Lactic acid 2. Magnesium 2. Troponin 0.18. BNP 635. TSH 2.56. Urinalysis remarkable for 2+ protein. Urine toxicology negative. Serum alcohol 112. Cervical spine CT reads as multilevel degenerative changes, most pronounced at C5-6 and C6-7. No acute fractures, subluxation, or destructive osseous lesion. EKG shows atrial flutter with a rate of 135. Second EKG shows atrial flutter with a rate of 109. Chest x-ray to my read shows pulmonary edema. Chest, thorax CTA reads as no evidence for pulmonary embolus. Bilateral septal thickening likely representing interstitial pulmonary edema. Small right greater than left pleural effusions. Cardiomegaly. Coronary artery disease. Mildly enlarged mediastinal lymph nodes which are nonspecific. Recommend correlation with clinical history and prior studies. Followup CT could be performed in 1 year to reassess if clinically indicated. ASSESSMENT AND PLAN: Mr. White is a 63-year-old male with past medical history of hypertension, hyperlipidemia, and asthma, who presents today with syncope and was found to be in new onset atrial flutter with rapid ventricular response. The patient will be admitted observation for: 1. Atrial flutter with rapid ventricular response. Again, this is new onset. On arrival, the patient's heart rate was in the 130s. After one dose of diltiazem, it has decreased to the 90s to low 100s. I will give him a dose of metoprolol tonight and then continue him on metoprolol tomorrow morning. This may need to be further titrated to attain rate control. I did speak with the patient and his about anticoagulation and they are in agreement with starting anticoagulation if necessary. They are understanding of the risks of anticoagulation. I have ordered Eliquis starting tonight. We will monitor him on telemetry and I will repeat EKG in the morning. I will consult cardiology in the morning. 2. Fluid overload. The findings are consistent with fluid overload with pulmonary edema noted on imaging and elevated BNP and abdominal distention. I will give the patient a dose of Lasix tonight and I have ordered an additional dose for tomorrow morning. I will give him low dose as he is Lasix naive. I did suspect that he does have some degree of congestive heart failure to the point, likely tachycardia induced from the atrial flutter. Again, we will check an echo in the morning. 3. Syncope. I think the syncope is obviously secondary to atrial flutter. We will check an echo in the morning and I have ordered orthostatic vital signs. 4. Elevated troponin. This is likely secondary to demand ischemia and not does not appear to be acute coronary syndrome. 5. Hypertension. The patient has had some soft pressures in the emergency room. Since I am starting him on metoprolol, I will hold his ramipril. At this point, it is likely that he will not need ramipril going forward as he remains on metoprolol for rate control. 6. Hyperlipidemia. I will check a lipid panel in the morning, but I will continue with his usual dose of atorvastatin at this time. 7. Asthma. Continue albuterol and Breo Ellipta or formulary alternative. 8. FEN. The patient does not require any fluid resuscitation or electrolyte repletion. I have ordered a heart-healthy diet. 9. Code status. The patient will be a full code. 10. DVT prophylaxis. According to the DVT Risk Assessment, the patient scores a 4 making him high risk. I have placed him on Eliquis. TIME SPENT: Approximately 60 minutes was spent on this admission, greater than half of that time spent [id number] with the patient and his obtaining my history, performing my physical examination, reviewing the plan of care. The plan of case has been reviewed with my attending, Dr. Rosas, who is in agreement with the plan of care. CESILIA RIGGINS NP [id number]/[facility] #: [id number] EULALIA
[2019-03-30] MEDS: Mometasone/Formoter 200/5 MDI INH SCH ×2 (08:18→19:56)
[2019-03-30] MEDS ORDERED: Metoprolol Tartrate TAB* 25 MG PO SCH (09:00)
[2019-03-30] MEDS ORDERED: Perflutren Lipid Microsphere* 3 ML VIAL ONE (09:29)
[2019-03-30] MEDS: Furosemide IV* 10 MG/ML 2 ML VIAL (20 MG) IV SLOW PU SCH (10:03)
[2019-03-30] MEDS: Tobramycin/Dexameth OPTH.SUSP* 2.5 M L BTL RIGHT EYE SCH ×4 (10:12→20:45)
--- NOTE | 2019-03-30 10:43 | ECHO ---
*[facility]* [place] [address] Fax #: [phone] Transthoracic Echocardiogram Patient: Richie White : 1955 Study Date: 03/30/2019 Age: 63 Gender: M HR: 93 bpm Height: 67 in /170.2 cm BSA: 2.44 m^2 Weight: 310.4 lb /141.1 kg BMI: 48.7 kg/m^2 *[employer] Administrator: * Sejal Marquez [facility] *Referring Physician: * Cesilia Riggins *Reading Physician: * Trisha Garcia MD Indications: Congestive Heart Failure. Syncope. History: Asthma. Risk factors: Hypertension. Obese. Hyperlipidemia. Conclusions Summary: - Left ventricle: The cavity size is normal. Wall thickness is mildly to moderately increased. Systolic function is severely reduced by visual assessment. The estimated ejection fraction is 15-20%. Severe diffuse hypokinesis. - Right ventricle: Systolic function is moderately to severely reduced. - Left atrium: The atrium is severely dilated. - Right atrium: The atrium is severely dilated. - Mitral valve: There is moderate to severe regurgitation, directed eccentrically. - Aortic valve: There is trace regurgitation. - Tricuspid valve: There is mild-moderate regurgitation. - Pulmonic valve: There is trace to mild regurgitation. - No previous echocardiogram available. Study data: Transthoracic echocardiogram. Procedure: Transthoracic echocardiography was performed. Image quality was suboptimal. The study was technically limited due to body habitus. Intravenous Definity , 4 mlswas administered. Complete 2D, spectral Doppler, and color flow Doppler. Location: Bedside. Patient status: Inpatient. Patient room number: 444-2. Rhythm: Atrial fibrillation. Findings Left ventricle: The cavity size is normal. Wall thickness is mildly to moderately increased. Systolic function is severely reduced by visual assessment. The estimated ejection fraction is 15-20%. Severe diffuse hypokinesis. Regional wall motion abnormalities: Hypokinesis of the apicalinferolateral, inferior, and inferoseptal myocardium. Left ventricular diastolic function parameters are indeterminate. Right ventricle: The cavity size is moderately dilated. Systolic function is moderately to severely reduced. Systolic pressure is moderately increased. Ventricular septum: There is septal flattening of the interventricular septum consistent with RV volume or pressure overload. Left atrium: The atrium is severely dilated. Right atrium: The atrium is severely dilated. Mitral valve: The leaflets are mildly thickened. There is no evidence of stenosis. There is moderate to severe regurgitation, directed eccentrically. Aortic valve: The valve is trileaflet. The leaflets are mildly thickened. There is no evidence of stenosis. There is trace regurgitation. Tricuspid valve: The leaflets are normal thickness. There is no evidence of stenosis. There is mild-moderate regurgitation. Pulmonic valve: The leaflets are normal thickness. There is no evidence of stenosis. There is trace to mild regurgitation. Aorta: Ascending aorta: The ascending aorta is appears normal. The aortic root appears normal. The aortic arch appears normal. Pericardium: A prominent pericardial fat pad is present. There is no significant pericardial effusion. Pulmonary arteries: The main pulmonary artery is normal-sized. Systolic pressure is moderately increased. Systemic veins: Inferior vena cava: The vessel is dilated. There is (< 50%) respiratory change in the IVC dimension. Measurements Left ventricle Value Ref Aortic valve continued Value Ref VINCENZO, LAX 5.6 cm 4.2 - 5.8 VTI, S 15.7 cm ----- ESD, LAX (H) 5.4 cm 2.5 - 4.0 Mean grad, S 3.0 mm Hg ----- FS, LAX (L) 4 % 25 - 43 Peak grad, S 5.0 mm Hg ----- PW, ED, LAX (H) 1.2 cm 0.6 - 1.0 LVOT/AV, VTI ratio 0.76 ----- FS (L) 4 % 25 - 43 LISA, VTI 2.40 cm^2 ----- PW, ED (H) 1.2 cm 0.6 - 1.0 LISA, Vmax 2.11 cm^2 ----- E', lat meenu, TDI 12.2 cm/sec >=10.0 E/e', lat meenu, 8 Mitral valve Value Ref TDI Peak E 1.02 m/sec ----- E', med meenu, TDI (L) 5.6 cm/sec >=7.0 Peak A 0 m/sec - ---- E/e', med meenu, 18 Decel time 145 ms ---- - TDI Peak grad, D 4.2 mm Hg ----- E', avg, TDI 8.9 cm/sec MR PISA radius 0.7 cm ---- - E/e', avg, TDI 11 <=14 Regurg VTI 114.0 cm - ---- ERO, PISA 0.21 cm^2 ----- LVOT Value Ref MR vol, PISA 25 ml ----- Diam, S 2.00 cm MR fraction, PISA 40 % ----- Area 3.1 cm^2 Peak estefani, S 0.75 m/sec Pulmonic valve Value Ref VTI, S 12.0 cm Peak v, S 0.71 m/sec ----- Mean grad, S 1 mm Hg Peak grad, S 2.0 mm Hg ----- SV 37 ml HI v, ED 1.26 m/sec ----- SV/bsa 15 ml/m^2 HI grad, ED 6 mm Hg ----- Ventricular septum Value Ref Tricuspid valve Value Ref IVS, ED (H) 1.2 cm 0.6 - 1.0 TR peak v (H) 3.1 m/sec <=2.8 Peak RV-RA grad, S 38 mm Hg ----- Right ventricle Value Ref VINCENZO, LAX 4.1 cm Aortic root Value Ref VINCENZO minor ax, A4C (H) 6.0 cm 1.9 - 3.5 Root diam 3.5 cm <4.5 mid Pressure, S 53 mm Hg Ascending aorta Value Ref AAo AP diam, S 3.3 cm ----- Left atrium Value Ref AP dim, ES (H) 6.60 cm 3.00 - Aortic arch Value Ref 4.00 Arch diam 2.1 cm ----- ML dim, A4C 5.7 cm SI dim, A4C 7.5 cm Decending aorta Value Ref Vol/bsa, ES, 1-p (H) 62 ml/m^2 12 - 37 Charan peak estefani 0.5 m/sec ----- A4C Vol/bsa, ES, A/L (H) 55 ml/m^2 16 - 34 Pulmonary artery Value Ref Pressure, S 51.0 mm Hg ----- Right atrium Value Ref SI dim, ES (H) 7.2 cm 3.4 - 5.3 Inferior vena cava Value Ref ML dim, ES, A4C (H) 6.1 cm 2.6 - 4.4 Diam 2.9 cm ----- SI dim, ES, A4C (H) 7.2 cm 3.4 - 5.3 Estimated RAP 15 mm Hg Aortic valve Value Ref Meenu diam, ED 2.0 cm Peak v, S 1.12 m/sec Legend: (L) and (H) alejandra values outside specified reference range. Prepared and electronically signed by Trisha Garcia MD 03/30/2019 10:42
[2019-03-30 13:02] LABS: ABS Basophils 0.1 10^3/ul (0-0.2); ABS Eosinophils 0.2 10^3/ul (0-0.6); ABS Lymphocytes 1.5 10^3/ul (1.0-4.8); ABS Monocytes 1.2 10^3/ul (0-0.8); ABS Neutrophils 9.3 10^3/ul (1.5-7.7); Eosinophil % 1.3 %; Hematocrit 41 % (42-52); Hemoglobin 13.8 g/dL (14.0-18.0); Lymphocyte % 12.1 %; Mean Corpuscular HGB Conc 34 g/dL (31-36); Mean Corpuscular Hemoglobin 32 pg (27-31); Mean Corpuscular Volume 94 fL (80-94); Mean Platelet Volume 8.5 fL (7.4-10.4); Platelet Count 301 10^3/uL (150-450); Red Blood Count 4.36 10^6 /uL (4.18-5.48); Red Cell Distribution Width 15 % (10-15); White Blood Count 12.3 10^3/uL (3.5-10.8)
[2019-03-30 13:32] LABS: Troponin I 0.18 ng/mL (<0.04)
[2019-03-30 13:38] LABS: Anion Gap 12 mmol/L (2-11); BUN/Creatinine Ratio 19.4 (8-20); Blood Urea Nitrogen 25 mg/dL (6-24); CO2 Carbon Dioxide 18 mmol/L (22-32); Calcium 9.3 mg/dL (8.6-10.3); Chloride 103 mmol/L (101-111); EGFR African American 68.1 (>60); EGFR Non-African American 56.3 (>60); Glucose 140 mg/dL (70-100); Potassium 4.9 mmol/L (3.5-5.0); Sodium 133 mmol/L (135-145)
[2019-03-30] MEDS ORDERED: Furosemide TAB* 40 MG PO SCH (14:00)
--- NOTE | 2019-03-30 15:35 | CONS ---
CONSULTATION REPORT: DATE OF CONSULT: 03/30/19 ATTENDING PHYSICIAN: Dr. Garcia, Cardiology.* (DICTATED BY JAKUB WOO NP ) PRIMARY PHYSICIAN: Dr. Zaki Bang. CHIEF COMPLAINT: Syncope with head injury. HISTORY OF PRESENT ILLNESS: This is a pleasant 63-year-old male patient, who has a history of obstructive sleep apnea, not medically treated in addition to obesity, hypertension, hyperlipidemia, and diverticulosis. The patient states that since November of 2018, he has been noticing progressive dyspnea on exertion, reduced exercise capacity, increased fatigue. He states that symptoms have been accelerating for the past 3 weeks in regards to his breathing effort and fatigue. His is at his bedside during the interview, who states that she has been noticing even with conversation that the patient has been exhibiting symptoms of shortness of breath. He does not have orthopnea, apparently he sleeps on his left side while. He denies chest pain, although,he does report a tightness in his upper abdomen which apparently was always historically related to position change, not necessarily while walking or going up a flight of stairs. Apparently he has never had any syncopal episodes and denies palpitations, sensation of heart racing or an irregularity/dizziness. Apparently, while going down a flight of stairs yesterday evening, he had an episode of syncope with no prodromal symptoms. He states that the last thing he remembers was going down the last 2 steps and then he woke up on the ground. According to his , who observed the episode, she states that the patient lost postural tone and fell face forward striking his face on the ground. Apparently, he did not have any diaphoresis, profound fatigue, chest pain, dizziness, or pallor afterwards, although she states that he appeared "red in the face" after the episode occurred. Prior to this episode occurring, he did have 3 beers which is not abnormal for him. Apparently, he typically consumes 3 beers approximately 3 nights a week in addition to 2 shots 3 nights a week. His alcohol level while being evaluated in the emergency department during early hours on 03/30/19 was 112. He was found to be in A-flutter with rapid ventricular rate at 130 beats per minute. He did undergo imaging while in the emergency department including brain CT, which per report did not find any acute intracranial abnormality. There was soft tissue swelling involving the right orbital region. His isoenzymes were elevated. Upon presentation, his troponin was 0.18. He was admitted to [address] [place] [address] for syncope, rule out ACS, and we have been asked to see the patient in consultation. Echo-cardiogram was updated and per report LVEF is now 15% to 20%. The patient offers no other complaints at this time. He denies any history of stress test or cardiac catheterization. He states he has otherwise been in his usual state of health. Last ischemic evaluation none. PAST MEDICAL HISTORY: 1. Diverticulosis. 2. Obstructive sleep apnea, not medically treated. 3. Obesity. 4. Hypertension. 5. Hyperlipidemia. 6. Adenomatous polyp. PAST SURGICAL HISTORY: Includes: 1. Left rotator cuff. 2. Bilateral knee replacement. 3. Right hip replacement. HOME MEDICATIONS: Per admission med rec. ALLERGIES: Include PENICILLIN which apparently causes a rash. He reports no allergy to contrast dye, shellfish, or aspirin. FAMILY HISTORY: Mother at the age of 88, apparently she presented with syncope at that time. Father had a history of cardiac stenting that occurred in 8th decade. No history of sudden in the family or premature cardiovascular disease. SOCIAL HISTORY: The patient is . Resides with his . He is retired. He ambulates independently, although he does report increased sedentary lifestyle after his most recent surgery. He consumes 3 beers approximately 3 night a week in addition to 2 small shots of vodka. Denies illegal drug use. REVIEW OF SYSTEMS: All systems have been reviewed and otherwise is negative except as above mentioned in the HPI. PHYSICAL EXAMINATION: General: The patient is sitting upright in bed upon entering the room. His is at bedside. He appears in no apparent distress. He is alert and oriented x3. Vital Signs: Most recent set of vital signs, temperature 97.6, pulse 61, respirations 18, oxygenation 95% on room air , blood pressure 113/94. HEENT: The patient has a traumatic injury noted to his right eye with profound ecchymosis. Oral mucosa is moist. Tongue is midline. Neck: Supple. Unable to assess JVD due to body habitus. No carotid bruits noted. Cardiac: Normal S1, S2. Irregular rate and rhythm. Positive 2/ 5 diastolic mitral murmur noted. No rub or gallop. Lungs: Auscultated posteriorly. Slight inspiratory crackles in bilateral bases. Otherwise, no other adventitious breath sounds auscultated. Respirations are nonlabored. / GI: Abdomen is obese, firm, nontender, unable to palpate hepatomegaly due to body habitus. Extremities: 1+ right pretibial edema noted. Trace left pretibial edema noted. Otherwise, no clubbing or cyanosis appreciated. DIAGNOSTIC STUDIES/LAB DATA: Blood work obtained 03/29/19: Sodium 134, potassium 4, chloride 104, carbon dioxide 18, BUN 24, creatinine 1.1, glucose 99. Troponin #1, 0.18. Troponin #2, 0.17. BNP was 635. TSH 2.56. White count is 10.9, hemoglobin 13, hematocrit 39, platelets 209. INR was 1.31. D- dimer elevated at 637. ECG from 03/29/19 at 8 p.m. demonstrate A-flutter with rapid ventricular rate. Heart rate was 135. Imaging done during this admission includes a chest/thoracic CTA. Per radiology report, no pulmonary embolism. There was bilateral septal thickening likely representing interstitial pulmonary edema. Small right greater than left pleural effusion, cardiomegaly with multivessel coronary artery calcification noted. Brain CT 03/29/19: As mentioned before, no acute intracranial abnormality. There was soft tissue swelling involving the right orbital region. Echocardiogram obtained 03/30/19 per report, LVEF 15% to 20% with severe diffuse hypokinesis, marked severe RV dilatation. Severe biatrial dilatation. Marked severe mitral regurgitation. Trace aortic insufficiency. Mild-to- moderate tricuspid regurgitation with moderate increase in PA pressure. The patient has been in A-flutter, rates 80s to 90s. ASSESSMENT AND PLAN: 1. Newly diagnosed severe left ventricular dysfunction. Left ventricular ejection fraction 15% to 20% with severe diffuse hypokinesis. Per CTA chest and thorax, there was multivessel coronary calcification. Risk factors include hypertension, hyperlipidemia. The patient states that he has had progressive dyspnea on exertion, fatigue, and decreased exercise capacity since at least November of 2018 with sudden acceleration in symptomatology for the past 2 to 3 weeks. He presented with syncope with no prodromal symptoms. He was found in atrial flutter with rapid ventricular rate response and has had troponinemia peaked at presentation of 0.18. He denies ever experiencing chest pain but does describe atypical upper abdominal tightness related to position change historically. At this time, Dr. Garcia would like to proceed with cardiac catheterization. I updated the patient in regards to risks versus benefits involving cardiac catheterization. His last dose of Eliquis was this morning. We would need to hold tonight's dose and tomorrow morning's dose for radial access. Risks of the procedure reviewed with the patient but are not limited to bleeding; infection; vessel damage; risk of contrast use; nephropathy; possibility of stroke, heart attack, ; requirement of dual antiplatelet therapy; referral for CABG, further intervention that would have to be done at tertiary care center due to SHF. He verbalized understanding. Dr. Garcia spoke to forming machine upkeep mechanic Dr. Elias Landers who is agreeable. We will proceed with cardiac catheterization. We will follow. 2. Newly diagnosed atrial flutter with rapid ventricular rate response. In 2017, he was in normal sinus rhythm which was the last ECG that he has had obtained. He does not appear to be symptomatic in regards to complaints of palpitations, sensation of heart racing, although it is not clear how long he has been in atrial aflutter. He does have severe left atrial dilatation. Chadsvasc is greater than > given h/o HTN and SHF. He is currently on Eliquis therapy. We will change Lopressor to Toprol. Currently rates are controlled. He would eventually likely benefit from protestant of normal sinus rhythm to help improve left ventricular function; however, we will address this at a later date. 3. History of obstructive sleep apnea. The patient states that he historically did not seek therapy because he was concerned in regards to the accuracy of prior study. Recommend overnight oximetry and if positive for sleep apnea, which I think it will be, would recommend treatment. His PA pressure was moderately increased on transthoracic echocardiogram. This would also help treat newly diagnosed atrial flutter with rapid ventricular rate response. 4. History of dyslipidemia, on statin therapy. Goal LDL less than 70. 5. History of moderate alcohol consumption. I stressed the importance of refraining from drinking in regards to his overall cardiovascular care, most importantly while trying to treat his heart failure. He states that he and his will modify their lifestyle and engage in regards to lifestyle modification. 6. Coagulopathy. INR 1.3, possibly related to hepatic congestion, although he does have a noticeable history of moderate alcohol consumption. His bilirubin was normal as was platelets and albumin. Defer to primary team. 7. Disposition: Pending course. Patient full code. I personally discussed the case with Dr. Garcia who agrees with the above assessment and plan. We will make further recommendations after reviewing the case with forming machine upkeep mechanic Dr. Landers. JAKUB WOO, SAP BI ARCHITECT [id number]/[facility] #: [id number] EULALIA
--- NOTE | 2019-03-30 16:56 | PN ---
Subjective Date of Service: 03/30/19 Interval History: Mr. White was seen by me this morning around 9am and again this afternoon. Both times he was feeling well and had no complaints. He did note that when he lies down flat he gets sweaty but otherwise has felt fine. No chest pain, shortness of breath, orthopnea. He does believe his belly is swollen Objective Active Medications: Albuterol (Ventolin Hfa Inhaler*) 2 puff INH Q4H PRN PRN Reason: SOB/WHEEZING Atorvastatin Calcium (Lipitor*) 80 mg PO 1700 [facility] Last Admin: 03/30/19 16:45 Dose: 80 mg Furosemide (Lasix Iv*) 20 mg IV SLOW PU DAILY [facility] Last Admin: 03/30/19 10:03 Dose: 20 mg Metoprolol Succinate (Toprol Xl Tab*) 25 mg PO DAILY [facility] Mometasone Furoate/Formoterol Fumar (Dulera 200/5 Mdi*) 2 puff INH BID [facility] Last Admin: 03/30/19 08:18 Dose: 2 puff Tobramycin/Dexamethasone (Tobradex 0.3-0.1%*) 1 drop RIGHT EYE QID [facility] Last Admin: 03/30/19 16:45 Dose: 1 drop Vital Signs - 8 hr 03/30/19 03/30/19 03/30/19 11:44 12:30 12:33 Temperature 98.7 F 97.6 F 97.6 F Pulse Rate 68 61 61 Respiratory 24 Rate Blood Pressure 117/89 113/94 113/94 (mmHg) O2 Sat by Pulse 93 95 95 Oximetry 03/30/19 03/30/19 03/30/19 12:47 12:48 14:04 Temperature Pulse Rate 64 93 105 Respiratory Rate Blood Pressure 98/35 131/61 149/97 (mmHg) O2 Sat by Pulse Oximetry 03/30/19 03/30/19 03/30/19 14:05 14:06 16:15 Temperature 98.0 F Pulse Rate 96 64 96 Respiratory 20 Rate Blood Pressure 151/98 126/66 123/74 (mmHg) O2 Sat by Pulse 98 Oximetry Oxygen Devices in Use Now: None Appearance: alert, no distress, well appearing, large echymosis left orbit Eyes: - - right eye with subconjunctival hemorrhage Ears/Nose/Mouth/Throat: NL Teeth, Lips, Gums Neck: NL Appearance and Movements; NL JVP, - - cannot appreciate JVP Respiratory: Symmetrical Chest Expansion and Respiratory Effort, - - few crackles b/l bases Cardiovascular: - - murmur at apex Abdominal: - - obese, protuberant Lymphatic: No Cervical Adenopathy Extremities: - - 1+ edema Skin: No Rash or Ulcers Result Diagrams: 03/30/19 12:54 03/30/19 12:54 Assess/Plan/Problems-Billing Assessment: 63 year old man with history of HTN who presented after syncope after having shortness of breath and dyspnea on exertion for about 6 months and is found to have acute systolic heart failure - Patient Problems (1) Acute systolic heart failure Current Visit: Yes Status: Acute Code(s): I50.21 - ACUTE SYSTOLIC ( CONGESTIVE) HEART FAILURE SNOMED Code(s): 121144590 Comment: etiology unclear; differential is broad and includes etoh, tachycardia-mediated, ischemic. TTE showed global hypokinesis --plan for LHC tomorrow hold off on LISSET given KIKO and plan for LHC tomorrow continue metoprolol (2) Atrial flutter Current Visit: Yes Status: Acute Code(s): I48.92 - UNSPECIFIED ATRIAL FLUTTER SNOMED Code(s): 7779479 Comment: [id number] = 2 (though this may underestimate risk given profound LV dysfunction) received 2 doses of eliquis last night and this morning; will transition to heparin in anticipation of LHC. close monitoring due to subconjunctival hemorrhage. (3) HTN (hypertension) Current Visit: Yes Status: Acute Code(s): I10 - ESSENTIAL (PRIMARY) HYPERTENSION SNOMED Code(s): 13333941 Comment: normotensive on metoprolol only
[2019-03-30] MEDS ORDERED: Atorvastatin* 80 MG TAB PO SCH (17:00)
[2019-03-30] MEDS ORDERED: Atorvastatin* 40 MG TAB PO SCH (17:00)
[2019-03-30] MEDS ORDERED: Heparin VIAL(*) 5000 UNITS/ML VIAL (FIVE THOUSAND) IV PRN (17:21)
[2019-03-30 17:53] LABS: ABS Basophils 0.1 10^3/ul (0-0.2); ABS Eosinophils 0.1 10^3/ul (0-0.6); ABS Lymphocytes 1.1 10^3/ul (1.0-4.8); ABS Neutrophils 8.5 10^3/ul (1.5-7.7); Eosinophil % 0.6 %; Hematocrit 40 % (42-52); Hemoglobin 13.4 g/dL (14.0-18.0); Lymphocyte % 10.3 %; Mean Corpuscular HGB Conc 34 g/dL (31-36); Mean Corpuscular Hemoglobin 32 pg (27-31); Mean Corpuscular Volume 94 fL (80-94); Mean Platelet Volume 8.3 fL (7.4-10.4); Platelet Count 238 10^3/uL (150-450); Red Cell Distribution Width 15 % (10-15); White Blood Count 10.8 10^3/uL (3.5-10.8)
[2019-03-30 18:00] LABS: Troponin I 0.17 ng/mL (<0.04)
[2019-03-30 18:10] LABS: EGFR African American 65.1 (>60); EGFR Non-African American 53.8 (>60)
[2019-03-30] MEDS: Heparin DRIP 25,000 UNITS(*) 25,000 UNITS/500 ML BAG IV SCH (22:03)
[2019-03-31 04:14] LABS: ABS Basophils 0.1 10^3/ul (0-0.2); ABS Eosinophils 0.2 10^3/ul (0-0.6); ABS Lymphocytes 1.6 10^3/ul (1.0-4.8); ABS Monocytes 0.9 10^3/ul (0-0.8); ABS Neutrophils 6.4 10^3/ul (1.5-7.7); Eosinophil % 1.7 %; Hematocrit 38 % (42-52); Hemoglobin 12.8 g/dL (14.0-18.0); Lymphocyte % 17.4 %; Mean Corpuscular HGB Conc 34 g/dL (31-36); Mean Corpuscular Hemoglobin 32 pg (27-31); Mean Corpuscular Volume 93 fL (80-94); Mean Platelet Volume 8.5 fL (7.4-10.4); Platelet Count 204 10^3/uL (150-450); Red Blood Count 4.04 10^6 /uL (4.18-5.48); Red Cell Distribution Width 15 % (10-15); White Blood Count 9.2 10^3/uL (3.5-10.8)
[2019-03-31 04:24] LABS: BUN/Creatinine Ratio 21.2 (8-20); Calcium 8.6 mg/dL (8.6-10.3); EGFR African American 79.3 (>60); EGFR Non-African American 65.5 (>60); Potassium 3.9 mmol/L (3.5-5.0)
[2019-03-31] MEDS: Mometasone/Formoter 200/5 MDI INH SCH (07:33)
[2019-03-31] MEDS ORDERED: Metoprolol Succinate XL TAB* 25 MG PO SCH (09:00)
[2019-03-31] MEDS ORDERED: Lisinopril TAB* 5 MG PO SCH (09:00)
[2019-03-31] MEDS ORDERED: Furosemide TAB* 40 MG PO SCH (09:00)
[2019-03-31] MEDS: Furosemide IV* 10 MG/ML 2 ML VIAL (20 MG) IV SLOW PU SCH (09:11)
[2019-03-31] MEDS: Tobramycin/Dexameth OPTH.SUSP* 2.5 M L BTL RIGHT EYE SCH ×2 (09:49→12:50)
[2019-03-31 12:03] VITALS: BP 136/75
[2019-03-31] MEDS ORDERED: Heparin 2 UNITS/ML IVPREMIX* 2,000 ML IV ONE (13:01)
[2019-03-31] MEDS ORDERED: Lidocaine 1% INJ* 10 MG/ML 30 ML SDV ONE (13:01)
[2019-03-31] MEDS ORDERED: Iohexol 350 (CONTRAST) 200 ML MDV IV ONE (13:01)
[2019-03-31] MEDS ORDERED: fentaNYL* 50 MCG/ML 2 ML VIAL (100 MCG VIAL) ONE (13:18)
[2019-03-31] MEDS ORDERED: VERAPAMIL 2.5 MG/ML 2 ML VIAL ** 5 mg/2 ml ONE (13:18)
[2019-03-31] MEDS ORDERED: Heparin(*) 1000 UNIT/ML 10 ML VIAL CATH LAB IV ONE (13:18)
[2019-03-31] MEDS ORDERED: Midazolam* 1 MG/ML 5 ML VIAL (5 MG) ONE (13:18)
[2019-03-31] MEDS ORDERED: nitroGLYCERIN DRIP* 25,000 MCG/250 ML BTL ONE (13:20)
[2019-03-31] MEDS ORDERED: Heparin DRIP 25,000 UNITS(*) 25,000 UNITS/500 ML BAG ONE (14:38)
[2019-03-31] MEDS ORDERED: NS 0.9% 1000 ML** 1,000 ML IV SCH (14:45)
[2019-03-31] MEDS: Heparin DRIP 25,000 UNITS(*) 25,000 UNITS/500 ML BAG IV SCH (14:50)
--- NOTE | 2019-03-31 16:14 | DS ---
AMENDED REPORT TO REMOVE COSIGN CC: Dr. Bang; Dr. Garcia; Dr. Landers * DISCHARGE SUMMARY: DATE OF ADMISSION: 03/30/19 DATE OF DISCHARGE: 03/31/19 PRINCIPAL DISCHARGE DIAGNOSES: 1. Multivessel coronary artery disease. 2. Fyq-FB-yjfkmbbwq myocardial infarction. 3. Acute systolic heart failure with biventricular failure. 4. Atrial flutter. 5. Enimrvib-nd-otbaqj mitral regurgitation. SECONDARY DISCHARGE DIAGNOSES: 1. Obstructive sleep apnea. 2. Obesity. 3. Hypertension. 4. Hyperlipidemia. 5. Asthma. MEDICATIONS AT THE TIME OF DISCHARGE: 1. Heparin infusion. 2. Ramipril 10 mg daily. 3. Atorvastatin 80 mg daily. 4. Breo 1 puff inhaled b.i.d. 5. Toprol-XL 25 mg daily. 6. TobraDex 1 drop right eye 4 times daily. PHYSICAL EXAM AT THE TIME OF DISCHARGE: Temperature 97.8, heart rate 99, respiratory rate 19, pulse ox 97% on room air, blood pressure 136/75. General: Alert, well-appearing man, in no distress. HEENT: The right orbit has large ecchymosis around it with a right subconjunctival hemorrhage. Vision is intact. Oral mucosa is moist. Neck: No appreciable JVP. No adenopathy. Chest : He is in a regular rate and rhythm with a systolic murmur at the apex. Lungs are clear bilaterally. Abdomen: Obese, soft, nontender, nondistended. Extremities: Right radial artery site is clean with a pressure band. Trace lower extremity edema. HOSPITAL COURSE BY PROBLEM: 1. Multivessel coronary artery disease. Left heart cath was performed on 03/31 to work up acute systolic heart failure and distal left main, total LAD and moderate RCA disease was found. Based on this finding, CT Surgery was contacted and Dr. Galo at [facility] has accepted the patient to his service at the cardiac ICU. 2. Acute systolic heart failure. The etiology is likely ischemic versus mitral valve regurgitation mediated. The patient has been having symptoms of dyspnea on exertion for approximately 6 months. Alternatively, tachycardia mediated may be playing a role. He was started on low-dose beta-kirby and was already on an LISSET inhibitor. He has no current oxygen requirement and is hemodynamically stable. 3. Dgaoltbr-dc-slupdr mitral regurgitation. Transfer to [facility] for CT Surgery evaluation. 4. Syncope. The patient's presentation was syncope, which was concerning for a ventricular arrhythmia versus worsening mitral valve disease versus coronary artery disease. He sustained a right orbital ecchymosis. 5. Obstructive sleep apnea. He has had untreated obstructive sleep apnea for some time, which likely has contributed to all of these findings. 6. Atrial fibrillation. This is a new finding for him. He has not been told he has had this in the past. He was treated with anticoagulation during his entire course here. DISPOSITION: Mr. White is being transferred to [facility] to the CT ICU for evaluation by a CT surgeon. CONDITION AT THE TIME OF DISCHARGE: Guarded. [id number]/[facility] #: [id number] EULALIA
--- NOTE | 2019-03-31 16:22 | CATH ---
CC: Dr. Trisha Garcia, [facility]; Dr. Zaki Bang III; Dr. Ortiz Galo, [facility], [facility] [facility] DIAGNOSTIC CARDIAC CATHETERIZATION REPORT: DATE OF PROCEDURE: 03/31/19 INDICATION FOR THE PROCEDURE: Asked by Dr. Garcia to perform diagnostic coronary catheterization in order to assess for the presence of coronary artery disease with severe left ventricular systolic dysfunction, EF 20%. PROCEDURE: Coronary arteriography: Left heart catheterization. CONSENT: The patient was interviewed and examined on the floor of the hospital where the risks and benefits were explained. He understood them and wished to proceed. APPROACH UTILIZED: The right radial artery was assessed for size while on the floor of the hospital by ultrasound and found to be acceptable, and as such, this was the route taken. EQUIPMENT UTILIZED: 1. The right radial artery sheath was a 6-[employer]auruan Glidesheath. 2. The diagnostic catheter for the left coronary artery was a 5-[place]aur[employer] TIG4 curved catheter and for the left coronary artery a 5-[place]auruan FR4 curved catheter. 3. The diagnostic guide wire was a 260 length Mackey curved guidewire. 4. The closure device was a long Vasc Band by [employer]. PRE-CARDIAC CATHETERIZATION LABORATORY RESULTS: Hemoglobin and hematocrit of 12.8 and 38 with a white count of 9200, platelet count of 204,000. BUN and creatinine were 24 and 1.1. Sodium 134, potassium 3.9, chloride 103, bicarb 23. MEDICATIONS: Given during the cardiac catheterization include: 1. A radial artery cocktail. 2. 3000 units of heparin. 3. 300 mcg of nitroglycerin. 4. 3 mg of verapamil. 5. Xylocaine 1% was used locally. 6. The patient received 0.5 mg of Versed. DESCRIPTION OF PROCEDURE: The patient was brought to the cardiovascular laboratory where a formal time-out was performed. He was prepped and draped in a sterile fashion, and under ultrasound guidance, the right radial artery was cannulated and a sheath was placed. Diagnostic coronary arteriography was performed. It should be noted that with the Emil right coronary catheter, it transiently crossed the aortic valve into the upper portion of the left ventricle, and as such, left ventricular pressure was recorded and pull-back was performed in order to avoid using any type of a pigtail catheter to extend deeper into the left ventricle given the fact that he had chronic atrial fibrillation with severe LV dysfunction and had not been anticoagulated while out of hospital. A pull-back was performed. After coronary arteriography and left heart catheterizations were carried out, the catheter was removed and hemostasis was obtained with a Vasc Band. The patient tolerated the procedure well. The total contrast used was 65 cc of Omnipaque dye. The radiation exposure included 7.1 minutes of fluoro time. The air kerma radiation was 2199 milligray (of note, the frame rate had to be increased in order to get better imaging due to significant obesity). The DAP radiation was 13,338 microgray per meter squared. RESULTS: HEMODYNAMIC DATA: Left heart catheterization - left heart catheterization revealed left ventricular pressure of 130 over left ventricular end diastolic pressure of 35 mmHg on average (patient in atrial fibrillation), ascending aortic pressure was 130/89 with a mean of 109. CORONARY ARTERIOGRAPHY: A. Left coronary artery: 1. Left main - there was tapering in the distal left main with a 75% to 80% distal lesion seen. 2. Left anterior descending artery. The left anterior descending artery had a 95% plus ostial stenosis seen. The proximal and mid portion of the vessel was heavily calcified and there was faint filling that barely made it to this point probably due to competitive filling from collaterals (LAD filling appeared to be from the septal perforators from the PDA of right coronary artery ). 3. Circumflex artery - a nondominant vessel supplying a trifurcation of marginal branch followed by high first obtuse marginal branch and then a mid moderate size obtuse marginal branch and then a low lying one past this . There was no significant lesion seen throughout the course of these vessels. B. Right coronary artery - a dominant vessel supplying the PDA and 2 posterior left ventricular branches. There was a proximal narrowing of 45% with a proximal to mid narrowing of 35%. The mid portion prior to turning on the inferior surface of the heart had haze in the area and when viewed in multiple angles appeared to have a stenosis that was as much as 70%. Distal to this, there did not appear to be significant lesion noted. OVERALL ASSESSMENT: Severe multivessel disease as described, most importantly with critical distal left main and severe ostial LAD. Elevated left ventricular end diastolic pressure noted. This information was shared with Dr. Garcia, the patient's primary pig machine operator helper, who will be dealing with further management of this patient. Clearly, transfer to a tertiary center for evaluation for revascularization will be emergently addressed by Dr. Garcia with the help of Dr. Mendez, the hospitalist, who will help orchestrate the transfer. Of note the patient did have moderate to severe mitral regurgitation on the hospital echocardiogram. This will need to be factored into his therapy. With the patient's atrial fibrillation, continued rate control would be important in addition to consideration for diuretic therapy. Of note, the patient is not hypotensive and I do not believe at this time a balloon pump is indicated. However, balloon pump preoperatively given the severe LV dysfunction may be considered an option depending upon the surgical opinion. It may be also helpful at the tertiary center to have the congestive heart failure cardiology service see the patient and help stabilize the patient preoperatively given all of his comorbidities. That will be at the decision of the tertiary center. [id number] #: [id number] EULALIA
== END 2019-03-31 14:42 | disposition short-term general hospital (02) | DRG 192 ==
LOC: ED 19:50 → MEDTELE 03-30 00:30 → OBSVTOIN 03-30 11:00
PROVIDERS: ADMIT Hospitalist; ATTEND Internal Medicine
PROC: 4A023N7 Measurement of Cardiac Sampling and Pressure, Left Heart, Percutaneous Approach (ICD-10-PCS; 2019-03-31)
PROC: B2111ZZ Fluoroscopy of Multiple Coronary Arteries using Low Osmolar Contrast (ICD-10-PCS; principal; 2019-03-31 13:00)
DX: I48.92 Unspecified atrial flutter (principal); I50.21 Acute systolic (congestive) heart failure; I21.4 Non-ST elevation (NSTEMI) myocardial infarction; D68.9 Coagulation defect, unspecified; Z68.42 Body mass index [BMI] 45.0-49.9, adult; I11.0 Hypertensive heart disease with heart failure; G47.33 Obstructive sleep apnea (adult) (pediatric); E78.5 Hyperlipidemia, unspecified; Z96.653 Presence of artificial knee joint, bilateral; Z96.641 Presence of right artificial hip joint; I25.10 Atherosclerotic heart disease of native coronary artery without angina pectoris; I34.0 Nonrheumatic mitral (valve) insufficiency; S05.12XA Contusion of eyeball and orbital tissues, left eye, initial encounter; W19.XXXA Unspecified fall, initial encounter; H11.31 Conjunctival hemorrhage, right eye; E78.00 Pure hypercholesterolemia, unspecified; M19.90 Unspecified osteoarthritis, unspecified site; E66.01 Morbid (severe) obesity due to excess calories; J45.909 Unspecified asthma, uncomplicated; R55 Syncope and collapse; I50.82 Biventricular heart failure; Z88.0 Allergy status to penicillin; Y92.9 Unspecified place or not applicable; Z72.89 Other problems related to lifestyle
CPT/HCPCS: 36415; 70450; 71045; 71275; 72125; 80048; 80053; 80061; 80307; 80320; 81003; 81015; 82565; 83036; 83605; 83735; 83880; 84443; 84484; 84520; 85025; 85379; 85610; 85730; 93005; 93306; 93458; 94640; 96374; 96375; 99156; 99285; A9270-GY; G0378; G0480; J1644; J1940; J2250; J3010; Q9967

== ENCOUNTER 2019-08-05 07:47 | Emergency (ER) | payer BC ==
--- OUTSIDE RECORDS SUMMARY | 2019-08-05 07:53 | XMS REPORT | Continuity of Care Document ---
:1955 External Reference #:[id number] Author Name Aniya Del Cid M.D. (transmitted by agent of provider Ailyn Patel) Address [address] [place] [id number] Care Team Providers Name Role Phone Zaki Bang III, MD - Internal Care Team Information Art Installer Medicine Stephane Burch MD - Allergy & Care Team Information Art Installer Immunology [facility] - Sleep Disorder Care Team Information Art Installer [phone] Diagnostic Problems Active Problems Provider Date Benign essential hypertension Zaki Bang M.D. Onset: 11/09/2013 Pure hypercholesterolemia Zaki Bang M.D. Onset: 11/09/2013 Essential hypertension Zaki Bang M.D. Onset: 06/18/2016 Obstructive sleep apnea syndrome Barby Hubbard DNP, RN, Onset: 04/14/2018 [facility]- Body mass index 40+ - severely obese Barby Hubbard DNP, RN, Onset: 2017 [facility]- Hypoxemia Barby Hubbard DNP, RN, Onset: 04/14/2018 [facility]- Arteriosclerosis of coronary artery Aniya Del Cid M.D. Onset: 05/05/2019 bypass graft Mitral valve disorder Aniya Del Cid M.D. Onset: 05/05/2019 Atrial flutter Aniya Del Cid M.D. Onset: 05/05/2019 Heart valve replacement Aniya Del Cid M.D. Onset: 05/16/2019 Heart failure with reduced ejection Aniya Del Cid M.D. Onset: 05/16/2019 fraction Chronic ischemic heart disease Aniya Del Cid M.D. Onset: 07/28/2019 Paroxysmal atrial fibrillation Aniya Del Cid M.D. Onset: 07/28/2019 Social History Type Date Description Comments Sex Unknown Tobacco Use Start: Unknown Never Smoked Cigarettes Smoking Status Reviewed: 06/23/19 Never Smoked Cigarettes ETOH Use Drinks 6 Alcoholic Beverages Per Week Tobacco Use Start: Unknown Patient has never smoked Recreational Drug Use Denies Drug Use Exercise Type/Frequency Exercises regularly walking more Allergies, Adverse Reactions, Alerts Active Allergies Reaction Severity Comments Date Penicillin 08/24/2013 Medications Active Medications SIG Qnty Indications Ordering Date Provider Atorvastatin Calcium 1 tab by mouth 90tabs Farhana Funez, 07/06/2019 40mg every day at REPEATER OPERATOR Tablets bedtime Potassium Chloride ER 1 by mouth every 90tabs Juice Figueroa 06/02/2019 other day Rand Wells 20Meq Tablets ER Lasix 2 tablets at 0800 90tabs I42.9 Farhanaurmila Funez, 05/26/2019 20mg Tablets REPEATER OPERATOR Losartan Potassium 1 by mouth every 90tabs R05 Aniya Del Cid, 05/16/2019 25mg day [place] Tablets Coumadin take 2 tablets Zaki EPetra 05/02/2019 4mg Tablets daily or as Rand Bang directed based on patient Inr Metoprolol Succinate 1 by mouth every Unknown 05/01/2019 ER day 25mg Tablets ER 24HR Sildenafil Citrate by mouth 0.5 or 1 14tabs Zaki EPetra 10/25/2017 100mg tab 1h before Rand Bang Tablets intercourse Multi For Him 50+ 1 by mouth every Unknown day Tablets Proair HFA inhale 2 puffs by 8.5units Zaki Ko 108(90Base) mouth every 6 Rand Bang mcg/Act Aerosol hours if needed for wheezing Breo Ellipta 1 puff daily Unknown 200-25mcg/Inh Aerosol Levocetirizine 1 tab daily Marcin, Dihydrochloride Christopher, 5mg MD Tablets Icaps Areds 2 twice a day Unknown 2 Capsules Mometasone Furoate spray two sprays Unknown in each nostril 50mcg/Act Suspension twice daily Aspirin 1 by mouth every Unknown 81mg Tablets Immunizations CPT Code Status Date Vaccine Reaction Lot # [id number] Given 10/25/2017 Pneumonia Vaccine Pt. tolerated well. No [id number] immediate reaction noted. 13830 Given 08/16/2014 Tdap - Tetanus/Diptheria/Acellul ar Pertussis Vital Signs Date Vital Result Comment 07/28/2019 1:08pm Height 67 inches 5'7" Weight 261.00 lb without shoes Heart Rate 70 /min BP Systolic Sitting 130 mmHg BP Diastolic Sitting 70 mmHg BP Systolic Standing 124 mmHg BP Diastolic Standing 72 mmHg Respiratory Rate 18 /min BMI (Body Mass Index) 40.9 kg/m2 Ejection Fraction 35-40 per 05/11/2019 06/23/2019 2:43pm Height 67 inches 5'7" Weight 264.00 lb with shoes BP Systolic Sitting 112 mmHg lue reg cuff BP Diastolic Sitting 70 mmHg lue reg cuff BP Systolic Standing 114 mmHg lue reg cuff BP Diastolic Standing 70 mmHg lue reg cuff Respiratory Rate 14 /min BMI (Body Mass Index) 41.3 kg/m2 Ejection Fraction 35-40% echo. 05/11/19 Results Test Acquired Date Facility Test Result H/L Range Note Lipid Profile 07/27/2019 [facility] Triglycerides 153 mg/dL 1 (Trig/Chol/HDL) [address] [place], [place] [id number] [phone] Cholesterol 142 mg/dL 2 HDL Cholesterol 42.0 mg/dL 3 LDL Cholesterol 69 mg/dL 4 Lipid Panel - 07/27/2019 [facility] Creatine 38 U/L Normal 10- [address] Kinase(CK) [place], [place] [id number] [phone] Comp Metabolic 07/27/2019 [facility] Sodium 139 Normal 135- [address] mmol/L [place], [place] [id number] [phone] Potassium 4.3 mmol/L Normal 3.5-5.0 Chloride 102 mmol/L Normal 101-111 Co2 Carbon Dioxide 29 mmol/L Normal 22-32 Anion Gap 8 mmol/L Normal 2-11 Glucose 94 mg/dL Normal 70-100 Blood Urea Nitrogen 18 mg/dL Normal 6-24 Creatinine 0.93 mg/dL Normal 0.67-1.17 BUN/Creatinine Ratio 19.4 Normal 8-20 Calcium 8.9 mg/dL Normal 8.6-10.3 Total Protein 6.7 g/dL Normal 6.4-8.9 Albumin 4.0 g/dL Normal 3.2-5.2 Globulin 2.7 g/dL Normal 2-4 Albumin/Globulin Ratio 1.5 Normal 1-3 Total Bilirubin 0.90 mg/dL Normal 0.2-1.0 Alkaline Phosphatase 119 U/L High 34-104 Alt 15 U/L Normal 7-52 Ast 18 U/L Normal 13-39 Egfr Non- 82.1 >60 Egfr 99.3 >60 5 Protime W/ Inr 07/24/2019 [facility] Prothrombin Time 31.7 Inr 2.6 Protime W/ Inr 07/17/2019 [facility] Prothrombin Time 30.4 Inr 2.5 Protime W/ Inr 07/10/2019 [facility] Prothrombin Time 33.2 Inr 2.8 Protime W/ Inr 07/03/2019 [facility] Prothrombin Time 32.5 Inr 2.7 Basic Metabolic 06/30/2019 [facility] Sodium 139 mmol/L Normal 135-145 [address] [place] [address] [phone] Potassium 4.0 mmol/L Normal 3.5-5.0 Chloride 104 mmol/L Normal 101-111 Co2 Carbon Dioxide 28 mmol/L Normal 22-32 Anion Gap 7 mmol/L Normal 2-11 Glucose 82 mg/dL Normal 70-100 Blood Urea Nitrogen 24 mg/dL Normal 6-24 Creatinine 0.88 mg/dL Normal 0.67-1.17 BUN/Creatinine Ratio 27.3 High 8-20 Calcium 9.1 mg/dL Normal 8.6-10.3 Egfr Non- 87.5 >60 Egfr 105.8 >60 6 Protime W/ Inr 06/26/2019 [facility] Prothrombin Time 37.0 Inr 3.1 Comp Metabolic 06/22/2019 [facility] Sodium 139 mmol/L Normal 135-145 [address] [place] [address] [phone] Potassium 4.0 mmol/L Normal 3.5-5.0 Chloride 103 mmol/L Normal 101-111 Co2 Carbon Dioxide 27 mmol/L Normal 22-32 Anion Gap 9 mmol/L Normal 2-11 Glucose 86 mg/dL Normal 70-100 Blood Urea Nitrogen 21 mg/dL Normal 6-24 Creatinine 0.89 mg/dL Normal 0.67-1.17 BUN/Creatinine Ratio 23.6 High 8-20 Calcium 9.0 mg/dL Normal 8.6-10.3 Total Protein 7.0 g/dL Normal 6.4-8.9 Albumin 4.1 g/dL Normal 3.2-5.2 Globulin 2.9 g/dL Normal 2-4 Albumin/Globulin Ratio 1.4 Normal 1-3 Total Bilirubin 0.60 mg/dL Normal 0.2-1.0 Alkaline Phosphatase 124 U/L High 34-104 Alt 22 U/L Normal 7-52 Ast 23 U/L Normal 13-39 Egfr Non- 86.3 >60 Egfr 104.5 >60 7 Protime W/ Inr 06/20/2019 [facility] Prothrombin Time 38.6 Inr 3.2 Protime W/ Inr 06/13/2019 [facility] Inr 3.33 High 0.82-1.[address] [place] [address] [phone] Protime W/ Inr 06/06/2019 Other Rendering Inr 2.5 Protime W/ Inr 05/29/2019 Other Rendering Inr 2.3 Laboratory test 05/26/2019 [facility] TSH <pending> finding [address] ([place] [address] Stim Horm) [phone] T3 Free <pending> Free T4 (Free Thyroxine) <pending> Laboratory test 05/25/2019 [facility] B-Type 944 pg/mL High <= [address] [place] [address] Peptide BNP [phone] Comp Metabolic 05/25/2019 [facility] Sodium 138 Normal 135- [address] mmol/[place] [address] [phone] Potassium 4.3 mmol/L Normal 3.5-5.0 Chloride 103 mmol/L Normal 101-111 Co2 Carbon Dioxide 29 mmol/L Normal 22-32 Anion Gap 6 mmol/L Normal 2-11 Glucose 81 mg/dL Normal 70-100 Blood Urea Nitrogen 19 mg/dL Normal 6-24 Creatinine 0.82 mg/dL Normal 0.67-1.17 BUN/Creatinine Ratio 23.2 High 8-20 Calcium 9.0 mg/dL Normal 8.6-10.3 Total Protein 6.9 g/dL Normal 6.4-8.9 Albumin 3.7 g/dL Normal 3.2-5.2 Globulin 3.2 g/dL Normal 2-4 Albumin/Globulin Ratio 1.2 Normal 1-3 Total Bilirubin 0.90 mg/dL Normal 0.2-1.0 Alkaline Phosphatase 179 U/L High 34-104 Alt 22 U/L Normal 7-52 Ast 19 U/L Normal 13-39 Egfr Non- 94.9 >60 Egfr 114.8 >60 9 Protime W/ Inr 05/24/2019 Other Rendering Inr 2.4 Protime W/ Inr 05/19/2019 Other Rendering Inr 2.5 Protime W/ Inr 05/17/2019 Other Rendering Inr 2.6 Protime W/ Inr 05/15/2019 Other Rendering Inr 2.5 Protime W/ Inr 05/12/2019 Other Rendering Inr 3.2 Protime W/ Inr 05/10/2019 Other Rendering Inr 2.5 Protime W/ Inr 05/08/2019 Other Rendering Inr 2.4 Protime W/ Inr 05/03/2019 Other Rendering Inr 2.1 Comp Metabolic Panel 03/29/2019 [facility] Sodium 134 mmol/L Low 135-[address] [place] [address] [phone] Potassium 4.0 mmol/L Normal 3.5-5.0 Chloride 104 mmol/L Normal 101-111 Co2 Carbon Dioxide 18 mmol/L Low 22-32 Anion Gap 12 mmol/L High 2-11 Glucose 99 mg/dL Normal 70-100 Blood Urea Nitrogen 24 mg/dL Normal 6-24 Creatinine 1.12 mg/dL Normal 0.67-1.17 BUN/Creatinine Ratio 21.4 High 8-20 Calcium 8.5 mg/dL Low 8.6-10.3 Total Protein 6.4 g/dL Normal 6.4-8.9 Albumin 3.9 g/dL Normal 3.2-5.2 Globulin 2.5 g/dL Normal 2-4 Albumin/Globulin Ratio 1.6 Normal 1-3 Total Bilirubin 0.60 mg/dL Normal 0.2-1.0 Alkaline Phosphatase 104 U/L Normal 34-104 Alt 31 U/L Normal 7-52 Ast 27 U/L Normal 13-39 Egfr Non- 66.2 >60 Egfr 80.1 >60 10 Laboratory test 03/29/2019 [facility] Magnesium 2.0 mg/dL Normal 1.9-2.[address] [place] [address] [phone] Alcohol 112 mg/dL High <10 Troponin-I (TnI) 0.18 ng/mL Critical high <0.04 11 TSH (Thyroid Stim Horm) 2.56 mcIU/mL Normal 0.34-5.60 B-Type Natriuretic Peptide BNP 635 pg/mL High <=100 Urine Drug 03/29/2019 [facility] Urine None Detected None Detect SCR ED & [address] [place] [address] Screen [phone] Urine Barbiturates Screen None Detected None Detect Urine Benzodiazepine Screen None Detected None Detect Urine Cannabinoids Screen None Detected None Detect Urine Cocaine Screen None Detected None Detect Urine Opiates Screen None Detected None Detect Urine Phencyclidine Screen None Detected None Detect 12 Laboratory test 03/29/2019 [facility] Lactic Acid 2.0 mmol/L Normal 0.5-2.0 [address] [place] [address] [phone] CBC Auto Diff 03/29/2019 [facility] White Blood 10.9 High 3.5- 10.[address] Count 10^3/[place] [address] [phone] Red Blood Count 4.14 10^6/uL Low 4.18-5.48 Hemoglobin 13.0 g/dL Low 14.0-18.0 Hematocrit 39 % Low 42-52 Mean Corpuscular Volume 95 fL High 80-94 Mean Corpuscular Hemoglobin 31 pg Normal 27-31 Mean Corpuscular HGB Conc 33 g/dL Normal 31-36 Red Cell Distribution Width 15 % Normal 10-15 Platelet Count 209 10^3/uL Normal 150-450 Mean Platelet Volume 8.3 fL Normal 7.4-10.4 Abs Neutrophils 8.5 10^3/uL High 1.5-7.7 Abs Lymphocytes 1.3 10^3/uL Normal 1.0-4.8 Abs Monocytes 0.8 10^3/uL Normal 0-0.8 Abs Eosinophils 0.2 10^3/uL Normal 0-0.6 Abs Basophils 0.1 10^3/uL Normal 0-0.2 Abs Nucleated RBC 0.0 10^3/uL Granulocyte % 78.0 % Lymphocyte % 11.6 % Monocyte % 7.7 % Eosinophil % 2.1 % Basophil % 0.6 % Nucleated Red Blood Cells % 0.0 Laboratory test 03/29/2019 [facility] D Dimer 637 ng/mL High Less [address] Quantitative Than [address] [place] [address] [phone] Inr/Protime 03/29/2019 [facility] Inr 1.31 High 0.82-1.[address] [place] [address] [phone] Desirable: <150 Borderline High: 150-199 High: 200-499 Very High: >500 2 Desirable: <200 Borderline High: 200-239 High: >239 3 Low: <40 Desirable: 40-60 High: >60 4 Desirable: <100 Near Optimal: 100-129 Borderline High: 130-159 High: 160-189 Very High: >189 5 Because ethnic data is not always readily [...] 15-29 5 Kidney failure <15 (or dialysis) 6 Because ethnic data is not always [...] 5 Kidney failure <15 (or dialysis) 7 Because ethnic data is not always readily [...] 15-29 5 Kidney failure <15 (or dialysis) 8 Standard intensity warfarin therapeutic range: 2.0-3.0 High intensity warfarin therapeutic range: 2.5-3.5 9 Because ethnic data is not always readily [...] 15-29 5 Kidney failure <15 (or dialysis) 10 Because ethnic data is not always readily [...] 15-29 5 Kidney failure <15 (or dialysis) 11 Result TnIDx:0.18 Called to [id number] at: 21:20:04 by:[id number] Read back by: [id number] Troponin-I testing on Plasma Separator Tubes (PST) has a known false positive rate of 0.20-0.40%. All positive troponins reflex immediately to secondary confirmatory testing. Using the [employer] DxI 800 Access Immunoassay systems, the 99th percentile upper reference limit was demonstrated to be < 0.03 ng/mL. 12 The urine specimen was tested at the listed cutoffs: Drug class test level (ng/mL) Amphetamines 500 Barbiturates 200 Benzodiazepine metabolites 200 Cocaine metabolites 150 Cannabinoids 50 Opiates 300 Pcp 25 Specimen was received without chain of custody. Results should be used for medical purposes only. 13 [facility] Severe Sepsis and Septic Shock Management Bundle Measure requires all lactic acids initially measuring >2.0 mmol/L be repeated. 14 Please note: The following may produce a false positive D Dimer test: - Rheumatoid factor greater than 60 IU/ml - Plasma hemoglobin greater than 0.05 gm/dl - Bilirubin greater than 50 mg/dl - Lipids greater than 1000 mg/dl - FDP greater than 20 ug/ml 15 Standard intensity warfarin therapeutic range: 2.0-3.0 High intensity warfarin therapeutic range: 2.5-3.5 Procedures Date Code Description Status 07/28/2019 22421 Holter Monitor Review (24 hr)dr porter & interp only Completed 07/28/2019 64371 ECG Monitor/Recording W/Visual Superimposition Scanning Completed 07/28/2019 77501 EKG Tracing & Interpretation Completed 05/11/2019 58269 ECHO Transthoracic, Real-Time 2D With Doppler And Color Completed Flow 05/05/2019 41234 EKG Tracing & Interpretation Completed 03/31/2019 75621 Left Heart Cath. Incl S/I Coronaries, Angio S/I V Gram Completed If Done 03/30/2019 32790 ECHO Transthorasic Realtime 2D W Doppler & Color Flow Completed Hosp 10/29/2017 35201038 Colonoscopy Completed Medical Devices Description No Information Available Encounters Type Date Location Provider Dx Diagnosis Office Visit 07/28/2019 [place] [facility] [facility] Aniya Del Cid, I25.810 Atherosclerosis of 1:10p Of Miladis Gordillo CABG w/o angina pectoris I34.0 Nonrheumatic mitral (valve) insufficiency Z95.2 Presence of prosthetic heart valve I25.5 Ischemic cardiomyopathy I48.4 Atypical atrial flutter Office Visit 06/23/2019 [place] Farhana I25.810 Atherosclerosis of 3:00p Cardiology Mike Funez NP CABG w/o angina Hris Manager pectoris I42.9 Cardiomyopathy, unspecified I48.0 Paroxysmal atrial fibrillation Z95.2 Presence of prosthetic heart valve I48.3 Typical atrial flutter Office Visit 05/26/2019 [place] I42.9 Cardiomyopathy, 3:00p Cardiology Mike Funez NP unspecified Hris Manager I25.810 Atherosclerosis of CABG w/o angina pectoris Z95.2 Presence of prosthetic heart valve I48.0 Paroxysmal atrial fibrillation Office Visit 05/16/2019 [place] Aniya Del Cid I25.810 Atherosclerosis of 11:45a Cardiology Mike Gordillo CABG w/o angina Hris Manager pectoris I42.9 Cardiomyopathy, unspecified R05 Cough R49.0 Dysphonia Z95.2 Presence of prosthetic heart valve Office Visit 05/05/2019 [place] Aniya Del Cid I25.810 Atherosclerosis of 1:10p Cardiology Mike Gordillo CABG w/o angina Hris Manager pectoris I34.0 Nonrheumatic mitral (valve) insufficiency I48.4 Atypical atrial flutter I42.9 Cardiomyopathy, unspecified Office Visit 03/31/2019 Jer[place] Rico S. I42.9 Cardiomyopathy, 3:26p Cardiology Rand Garcia unspecified R94.39 Abnormal result of other cardiovascular function study Office Visit 03/31/2019 [facility] Lida I50.21 Acute systolic 9:45a Assoc,pc Senner, DO (congestive) heart Hospitalists failure I11.0 Hypertensive heart disease with heart failure I21.4 Non-St elevation (Nstemi) myocardial infarction I34.0 Nonrheumatic mitral (valve) insufficiency Office Visit 03/30/2019 [place] Trisha S. I48.92 Unspecified 3:23p Cardiology Rand Garcia atrial flutter I50.21 Acute systolic (congestive) heart failure I10 Essential (primary) hypertension E78.5 Hyperlipidemia, unspecified Office Visit 03/30/2019 9:45a [facility] Cesilai Gilson, I48.92 Unspecified Assoc,pc REPEATER OPERATOR atrial flutter Hospitalists R55 Syncope and collapse I10 Essential (primary) hypertension E87.70 Fluid overload, unspecified Assessments Date Code Description Provider 07/28/2019 I25.810 Atherosclerosis of coronary artery Aniya Del Cid M.D. bypass graft(s) without angina pectoris 07/28/2019 I34.0 Nonrheumatic mitral (valve) Aniya Del Cid M.D. insufficiency 07/28/2019 Z95.2 Presence of prosthetic heart valve Aniya Del Cid M.D. 07/28/2019 I25.5 Ischemic cardiomyopathy Aniya Del Cid M.D. 07/28/2019 I48.4 Atypical atrial flutter Aniya Del Cid M.D. 07/24/2019 Z95.2 Presence of prosthetic heart valve Nurse Visit A 07/24/2019 Z79.01 skilled nursing (current) use of Nurse Visit A anticoagulants 07/17/2019 Z95.2 Presence of prosthetic heart valve Nurse Visit A 07/17/2019 Z79.01 long term care phlebotomist (current) use of Nurse Visit A anticoagulants 07/10/2019 Z95.2 Presence of prosthetic heart valve Nurse Visit A 07/10/2019 Z79.01 skilled nursing (current) use of Nurse Visit A anticoagulants 07/10/2019 I48.0 Paroxysmal atrial fibrillation Nurse Visit A 07/03/2019 Z95.2 Presence of prosthetic heart valve Nurse Visit A 07/03/2019 Z79.01 skilled nursing (current) use of Nurse Visit A anticoagulants 06/26/2019 Z95.2 Presence of prosthetic heart valve Nurse Visit A 06/26/2019 I48.0 Paroxysmal atrial fibrillation Nurse Visit A 06/26/2019 Z79.01 skilled nursing (current) use of Nurse Visit A anticoagulants 06/26/2019 Z95.2 Presence of prosthetic heart valve Zaki Bang M.D. 06/26/2019 I48.0 Paroxysmal atrial fibrillation Zaki Bang M.D. 06/23/2019 I25.810 Atherosclerosis of coronary artery Farhana Thuman, REPEATER OPERATOR bypass graft(s) without angina pectoris 06/23/2019 I42.9 Cardiomyopathy, unspecified Farhana Thuman, REPEATER OPERATOR 06/23/2019 I48.0 Paroxysmal atrial fibrillation Farhana Thuman, REPEATER OPERATOR 06/23/2019 Z95.2 Presence of prosthetic heart valve Farhana Thuman, REPEATER OPERATOR 06/23/2019 I48.3 Typical atrial flutter Farhana Thuman, REPEATER OPERATOR 06/20/2019 Z95.2 Presence of prosthetic heart valve Nurse Visit A 06/20/2019 Z79.01 long term care phlebotomist (current) use of Nurse Visit A anticoagulants 06/20/2019 I48.0 Paroxysmal atrial fibrillation Nurse Visit A 06/20/2019 Z95.2 Presence of prosthetic heart valve Zaki Bang M.D. 06/20/2019 I48.0 Paroxysmal atrial fibrillation Zaki Bang M.D. 05/26/2019 I42.9 Cardiomyopathy, unspecified Farhana Thuman, REPEATER OPERATOR 05/26/2019 I25.810 Atherosclerosis of coronary artery Farhana Thuman, REPEATER OPERATOR bypass graft(s) without angina pectoris 05/26/2019 Z95.2 Presence of prosthetic heart valve Farhana Thuman, REPEATER OPERATOR 05/26/2019 I48.0 Paroxysmal atrial fibrillation Farhana Thuman, REPEATER OPERATOR 05/16/2019 I25.810 Atherosclerosis of coronary artery Aniya Del Cid M.D. bypass graft(s) without angina pectoris 05/16/2019 I42.9 Cardiomyopathy, unspecified Aniya Del Cid M.D. 05/16/2019 R05 Cough Aniya Del Cid M.D. 05/16/2019 R49.0 Dysphonia Aniya Del Cid M.D. 05/16/2019 Z95.2 Presence of prosthetic heart valve Aniya Del Cid M.D. 05/11/2019 I34.0 Nonrheumatic mitral (valve) Traveling ECHO 1 insufficiency 05/11/2019 I42.9 Cardiomyopathy, unspecified Traveling ECHO 1 05/11/2019 I25.810 Atherosclerosis of coronary artery Traveling ECHO 1 bypass graft(s) without angina pectoris 05/11/2019 Z95.2 Presence of prosthetic heart valve Aniya Del Cid M.D. 05/11/2019 Z95.2 Presence of prosthetic heart valve Traveling ECHO 1 05/05/2019 I25.810 Atherosclerosis of coronary artery Aniya Del Cid M.D. bypass graft(s) without angina pectoris 05/05/2019 I34.0 Nonrheumatic mitral (valve) Aniya Del Cid M.D. insufficiency 05/05/2019 I48.4 Atypical atrial flutter Aniya Del Cid M.D. 05/05/2019 I42.9 Cardiomyopathy, unspecified Aniya Del Cid M.D. 03/31/2019 I42.9 Cardiomyopathy, unspecified Trisha Garcia M.D. 03/31/2019 I50.21 Acute systolic (congestive) heart Lida Mendez, DO failure 03/31/2019 R94.39 Abnormal result of other Trisha Garcia M.D. cardiovascular function study 03/31/2019 I25.10 Atherosclerotic heart disease of Elias Landers M.D., [facility] [place] coronary artery without angina pectoris 03/31/2019 I11.0 Hypertensive heart disease with Lida Andrea, DO heart failure 03/31/2019 I21.4 Non-St elevation (Nstemi) myocardial Lida Mendez, DO infarction 03/31/2019 I34.0 Nonrheumatic mitral (valve) Lida Senluisito, DO insufficiency 03/30/2019 I48.92 Unspecified atrial flutter Trisha Garcia M.D. 03/30/2019 I50.21 Acute systolic (congestive) heart Trisha Garcia M.D. failure 03/30/2019 I10 Essential (primary) hypertension Trisha Garcia M.D. 03/30/2019 E78.5 Hyperlipidemia, unspecified Trisha Garcia M.D. 03/30/2019 I50.9 Heart failure, unspecified Trisha Garcia M.D. 03/30/2019 R55 Syncope and collapse Trisha Garcia M.D. 03/30/2019 I48.92 Unspecified atrial flutter Cesilia Gilson, REPEATER OPERATOR 03/30/2019 R55 Syncope and collapse Cesilia Gilson, REPEATER OPERATOR 03/30/2019 I10 Essential (primary) hypertension Cesilia Gilson, REPEATER OPERATOR 03/30/2019 E87.70 Fluid overload, unspecified Cesilia Gilson, REPEATER OPERATOR Plan of Treatment Future Appointment(s):11/06/2019 3:20 pm - Aniya Del Cid M.D. at [facility]10/26/2019 9:00 am - Traveling ECHO 2 at [facility]07/31/2019 8:45 am - Nurse Visit IC at [facility]08/31/2019 11 :10 am - Cardiology Doctor Loc 39 at [place] [facility] AT [facility]01/01/2020 11:00 am - Zaki Bang M.D. at [facility] - [facility]07/28/2019 - Aniya Del Cid M.D.I25.810 Atherosclerosis of coronary artery bypass graft(s) without angina paxuurduN38.0 Nonrheumatic mitral (valve) yvxlmkcrjahxzT19.2 Presence of prosthetic heart uulqoY74.5 Ischemic cardiomyopathyNew Orders: Echocardiogram, Ordered: 07/28/19I48.4 Atypical atrial flutterFollow up:We will call with Holter results. 2-3 months after echo. CANCEL referral to Dr Mcneal for now. Functional Status Description No Information Available Mental Status Description No Information Available Referrals Refer to Reason for Referral Status Appt Date Jeancarlos Ríos MD Sent [address] [place] [address] [phone] [facility] s/p CABG and MV repair and more. Created [address] [place] [address] [phone]
--- OUTSIDE RECORDS SUMMARY | 2019-08-05 07:53 | XMS REPORT | Continuity of Care Document ---
:1955 Author Organization [facility] Care Team Providers Name Role Phone MALACHI ARCE Admitting Physician MALACHI ARCE Attending Physician Allergies and Intolerances No Allergy Data in the System Medications No Known Medications Medications At Time Of Discharge No data in the system Problems No Data in the system Procedures No data in the system Results Laboratory Results Order: COMPREHENSIVE PANEL Specimen Source : Body Site: Legend: (G,H) = High, (GG,HH,CH,#H) = Above High Threshold, (#,L) = Low, (##,CL,#L,LL) = Below Low Threshold, (C,CC,CA,#A,A) = Abnormal LOINC Test Result Flag Range Units Date 2951-2 1Sodium SerPl-sCnc 140 136-145 mmol/L 06/06/2019 13:30 3-3 1Potassium SerPl-sCnc 4.3 3.5-5.2 mmol/L 06/06/2019 13:30 5-0 1Chloride SerPl-sCnc 102 100-108 mmol/L 06/06/2019 13:30 8-9 1CO2 SerPl-sCnc 28 21-32 mmol/L 06/06/2019 13:30 2345-7 1Glucose SerPl-mCnc 78 70-100 mg/dL 06/06/2019 13:30 3094-0 1BUN SerPl-mCnc 17 7-21 mg/dL 06/06/2019 13:30 2160-0 1Creat SerPl-mCnc 0.9 0.6-1.3 mg/dL 06/06/2019 13:30 Interpretive Carito: 1Normal Kidney Function or Mild Disease - GFR >OR= 60 Chronic Kidney Disease - GFR 15-59 Renal Failure - GFR < 15 GFR not calculated on patients under 18 years of age. Calculated (estimated) GFR is based on the MDRD Study equation, which assumes a steady state for creatinine. Estimated GFR may not be appropriate for medication dosing. 88222-9 1Ca-I SerPl-mCnc 8.7 8.5-10.8 mg/dL 06/06/2019 13:30 89439-5 1GFR/BSA.pred SerPl-ArVRat >60 06/06/2019 13:30 35108-0 1Bilirub Bld-mCnc 0.9 0.0-1.2 mg/dL 06/06/2019 13:30 2885-2 1Prot SerPl-mCnc 6.8 6.4-8.2 gm/dL 06/06/2019 13:30 1751-7 1Albumin SerPl-mCnc 3.8 3.2-4.6 gm/dL 06/06/2019 13:30 6768-6 1ALP SerPl-cCnc 158 H 40-150 U/L 06/06/2019 13:30 1742-6 1ALT SerPl-cCnc 22 0-55 U/L 06/06/2019 13:30 1920-8 1AST SerPl-cCnc 22 5-37 U/L 06/06/2019 13:30 Performing Lab Footnotes:[facility] - [id number] - [address] [place] [address] HERBERT ESQUIVEL Order: MAGNESIUM Specimen Source: Body Site: Legend: (G,H) = High, (GG, HH,CH,#H) = Above High Threshold, (#,L) = Low, (##,CL,#L,LL) = Below Low Threshold, (C,CC,CA,#A,A) = Abnormal LOINC Test Result Flag Range Units Date 00494-0 1Magnesium SerPl-mCnc 2.0 1.7-2.6 mg/dL 06/06/2019 13:30 Performing Lab Footnotes:[facility] - [id number] - [address] [place] [address] HERBERT STEWARTD1 Order: PHOSPHORUS Specimen Source: Body Site: Legend: (G,H) = High, (GG ,HH,CH,#H) = Above High Threshold, (#,L) = Low, (##,CL,#L,LL) = Below Low Threshold, (C,CC,CA,#A,A) = Abnormal LOINC Test Result Flag Range Units Date 2777- 1Phosphate SerPl-mCnc 4.1 2.5-4.9 mg/dL 06/06/2019 13:30 Performing Lab Footnotes:[facility] - [id number] - [address] [place] [address] HERBERT ESQUIVEL Social History Code Code System Social History Description Dates Observed Observation [id number] SNOMED CT Current Smoking Unknown if ever Status smoked UNK AdministrativeGender Sex Assigned At Unknown Vital Signs No data in the system Goals Section No data in the system Health Concerns No data in the systemEncounter Diagnosis Date Code Code System Diagnosis Status Z95.2 ICD10 PRESENCE OF PROSTHETIC HEART VALVE Active Advance Directives No Data in the System Encounters Encounter Diagnosis Location Date PRESENCE OF PROSTHETIC HEART VALVE [facility] 06/06/2019 Family History Family history not obtained Functional Status No data in the system Immunizations No data in the system Medical Equipment No data in the system Mental Status No data in the system Assessment and Plan Assessments No data in the systemPlan Of Treatment No data in the systemPending Tests No data in the system Hospital Discharge Instructions No data in the system Reason for Visit No data in the system
[2019-08-05 08:01] VITALS: BP 158/90
--- NOTE | 2019-08-05 08:05 | UC ---
Laceration HPI - HPI Summary HPI Summary: 63-year-old male presenting with for right thumb laceration that he states happened at 10:30 PM last night. Patient states he is wearing fleas pajamas and slipped on his hardwood floor causing him to hit his thumb on the wooden door frame. Denies pain. Denies decreased range of motion. States tetanus up- to-date, last one in 2014. - History Of Current Complaint Chief Complaint: UCLaceration Stated Complaint: LACERATION TO THUMB Pain Intensity: 0 - Allergies/Home Medications Allergies/Adverse Reactions: Allergies Allergy/AdvReac Type Severity Reaction Status Date / Time Penicillins Allergy Intermediate Rash Verified 08/05/19 08:01 Home Medications: Home Medications Aspirin 81 mg CHEW TAB* [Aspirin Low Dose TAB*] 81 mg PO DAILY 08/05/19 [ History Confirmed 08/05/19] Furosemide TAB* [Lasix TAB*] 40 mg PO DAILY 08/05/19 [History Confirmed 08/05/19 ] Losartan TAB* [Cozaar TAB*] 25 mg PO DAILY 08/05/19 [History Confirmed 08/05/19] Pantoprazole TAB * [Protonix TAB*] 40 mg PO DAILY 08/05/19 [History Confirmed ] Potassium Chlor TAB* [Klor Con ER TAB*] 20 meq PO SEE INSTRUCTIONS 08/05/19 [ History Confirmed 08/05/19] Ultra Solo 1 tab PO DAILY 08/05/19 [History Confirmed 08/05/19] Warfarin TAB(*) [Coumadin TAB(*)] 8 mg PO DAILY 08/05/19 [History Confirmed 07/24] PMH/Surg Hx/FS Hx/Imm Hx Endocrine History: Dyslipidemia Cardiovascular History: Hypertension - Surgical History Surgical History: Yes Surgery Procedure, Year, and Place: RIGHT TOTAL HIP REPLACED-2009. MENISCECTOMY - BOTH KNEES. TOES SURGERIES- dEBRIDEMENT GOUT DEPOSIT AND NGUYEN BUNION REPAIR 03/2017. CARPAL TUNNEL RIGHT WRIST. CABG, MVR, partial jejunalectomy . TONSILS. Shoulder surgery 2017 - Family History Known Family History: Negative: Diabetes - Social History Alcohol Use: Weekly Alcohol Amount: 2-3/week Substance Use Type: None Substance Use Comment - Amount & Last Used: rare Smoking Status (MU): Never Smoked Tobacco Have You Smoked in the Last Year: No - Immunization History Most Recent Influenza Vaccination: never Most Recent Pneumonia Vaccination: 2018 Review of Systems All Other Systems Reviewed And Are Negative: No Constitutional: Positive: Negative Skin: Positive: Other - Laceration of right thumb Respiratory: Positive: Negative Cardiovascular: Positive: Negative Musculoskeletal: Positive: Negative. Negative: Decreased ROM, Edema Neurological: Positive: Negative. Negative: Weakness, Paresthesia, Numbness Physical Exam - Summary Physical Exam Summary: Vital Signs Reviewed: Yes A+Ox3, no distress Eyes: Conjunctiva Clear ENT: Hearing grossly normal neck: supple Respiratory: Positive: No respiratory distress, No accessory muscle use Cardiovascular: skin color reflect adequate perfusion Musculoskeletal Exam: CALLAHAN x 4 without difficulty, full ROM of R thumb, sensation grossly intact, cap refill <2sec Neurological: Positive: Alert, ambulatory without difficulty Psychological: Positive: age appropriate behavior Skin: Positive: ~2cm superficial nonbleeding laceration noted on flexor surface of IP joint of R thumb, minimal surrounding ecchymosis, Vital Signs: Initial Vital Signs Temp 98.0 F 08/05/19 07:55 Pulse 96 08/05/19 07:55 Resp 16 08/05/19 07:55 BP 158/90 08/05/19 07:55 Pulse Ox 96 08/05/19 07:55 Laceration Repair - Laceration Repair 1 Description: Linear Laceration Size After Repair: Length (cm) - 2, Width (mm) - 10 Modified For Repair: No Type Injection: Local Anesthesia Used: 1.0% Lido Cleansing Completed Via Routine Prep: Yes Irrigation With Pressure Irrigation Device: Yes Closure Material: Sutures - 5 Closure Method: Single Layer Suture Of: Skin Suture Type: Prolene - 4-0 Laceration Course/Dx - Course/Dx Course Of Treatment: Patient presenting with right thumb laceration. The wound was irrigated. A timeout was performed with LIZ Miranda. I repaired the laceration with 5 sutures. Dressing was placed in thumb was splinted. Patient tolerated well. Patient up-to-date on tetanus. Educated on wound care and discuss signs and symptoms of infection. Instructed to return if wound comes apart or if any signs of infection occur. Instructed patient to return or follow up with PCP in 10 days for suture removal. Patient voiced understanding and agreed with the treatment plan. - Diagnosis Provider Diagnosis: Laceration of right thumb Discharge ED - Sign-Out/Discharge Documenting (check all that apply): Patient Departure All imaging exams completed and their final reports reviewed: No Studies - Discharge Plan Condition: Stable Disposition: HOME Patient Education Materials: Care For Your Stitches (ED), Finger Laceration (ED ) Referrals: Zaki Bang MD [Primary Care Provider] - Additional Instructions: As discussed, keep your stitches clean and dry for the first 24-48 hours. Your stitches will not absorb. Return in 10 days to have your stitches removed. Keep the splint on to keep the thumb immobilized and promote faster healing. You may take over the counter pain medications as directed for pain relief. Return or go to the emergency department if your stitches come apart or you notice any redness, swelling, fluid drainage, fever, nausea and vomiting. - Billing Disposition and Condition Condition: STABLE Disposition: Home - Attestation Statements Provider Attestation: T
[2019-08-05] MEDS ORDERED: Lidocaine 1% MPF ** 5 ML VIAL INJ ONE (08:12)
== END 2019-08-05 08:55 | disposition home or self-care (01) ==
LOC: UCEAST 07:47
DX: S61.011A Laceration without foreign body of right thumb without damage to nail, initial encounter (principal); I10 Essential (primary) hypertension; Z88.0 Allergy status to penicillin; Z79.82 Long term (current) use of aspirin; Z79.899 Other long term (current) drug therapy; Z96.641 Presence of right artificial hip joint; W18.40XA Slipping, tripping and stumbling without falling, unspecified, initial encounter; Y92.9 Unspecified place or not applicable; W22.09XA Striking against other stationary object, initial encounter
CPT/HCPCS: 12001; 99213; G0463

== ENCOUNTER 2019-08-11 07:42 | Emergency (ER) | payer MEDICARE, BC ==
--- OUTSIDE RECORDS SUMMARY | 2019-08-11 07:48 | XMS REPORT | Continuity of Care Document ---
:1955 External Reference #:[id number] Author Name Meir Diez MD Address [address] [place] [id number] Care Team Providers Name Role Phone Zaki Bang MD Care Team Information Consumer Relations Complaint Clerk [phone] Problems Active Problems Provider Date Liver function tests abnormal Meir Diez MD Onset: 07/25/2019 Social History Type Date Description Comments Sex Unknown Tobacco Use Start: Unknown Patient has never smoked Smoking Status Reviewed: 07/25/19 Patient has never smoked Allergies, Adverse Reactions, Alerts Active Allergies Reaction Severity Comments Date Penicillin 08/24/2013 Medications Active Medications SIG Qnty Indications Ordering Date Provider Colyte With Flavor by mouth as 4000ml Wanda Matias 09/28/2017 Packs directed ROSALVA Cyr 240gm Solution Rec Naproxen 1 by mouth twice a 30tabs M20.12 Sang Tai 04/08/2017 375mg day G,MD Tablets Atorvastatin 1 by mouth every 90tabs Zaki Bang, 11/11/2016 Calcium day MD 40mg Tablets Ramipril Take 1 Tablet By 90caps aZki Bang, 12/13/2014 10mg Mouth Once Daily MD Capsules Viagra by mouth 0.5 or 1 12tabs Zaki Bang, 100mg tab 1h before MD Tablets intercourse Proair HFA inhale 2 puffs by 8.500units Zaki Bang, mouth every 6 MD 108(90Base) mcg/Act hours if needed Aerosol for wheezing Immunizations CPT Code Status Date Vaccine Lot # [id number] Given 08/16/2014 Tetanus, Diphtheria Toxoids/Acellular Pertussis Vaccine 7 Or > Vital Signs Date Vital Result Comment 07/25/2019 2:50pm Height 67.25 inches 5'7.25" Weight 256.00 lb BP Systolic 146 mmHg BP Diastolic 92 mmHg Heart Rate 90 /min BMI (Body Mass Index) 39.8 kg/m2 09/27/2017 2:05pm Height 67 inches 5'7" Weight 280.00 lb BMI (Body Mass Index) 43.8 kg/m2 Results Test Acquired Date Facility Test Result H/L Range Note Liver Function 07/27/2019 [facility] Total Protein 6.8 g/dL Normal 6.4-8.9 Panel(!) Albumin 4.0 g/dL Normal 3.2-5.2 Globulin 2.8 g/dL Normal 2-4 Albumin/Globulin Ratio 1.4 Normal 1-3 Total Bilirubin 0.90 mg/dL Normal 0.2-1.0 Direct Bilirubin 0.20 mg/dL High 0.03-0.18 Indirect Bilirubin 0.7 mg/dL Normal 0.3-1.0 Alkaline Phosphatase 120 U/L High 34-104 Alt 16 U/L Normal 7-52 Ast 18 U/L Normal 13-39 Procedures Description No Information Available Medical Devices Description No Information Available Encounters Description No Information Available Assessments Date Code Description Provider 07/25/2019 R94.5 Abnormal results of liver function studies Meir Diez MD Plan of Treatment 07/25/2019 - Meir Diez, MDR94.5 Abnormal results of liver function studiesComments:I had a long discussion with the patient regarding his need for statins and his liver function tests. His alkaline phosphatase is mildly elevated and I am perfectly fine if the supervisor delivery department 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 My only request would be that we monitor his liver function tests fairly closely. I will continue to follow along Functional Status Description No Information Available Mental Status Description No Information Available Referrals Description No Information Available
--- OUTSIDE RECORDS SUMMARY | 2019-08-11 07:48 | XMS REPORT | Continuity of Care Document ---
:1955 External Reference #:[id number] Author Care Team Providers Name Role Phone Zaki Bang MD Care Team Information Factory Maintenance Manager [phone] Problems Active Problems Provider Date Liver function [...] With Flavor by mouth as 4000ml Wanda L. 09/28/2017 Packs directed ROSALVA Cyr 240gm Solution Rec Naproxen 1 by mouth twice a 30tabs M20.12 Sang Tai 04/08/2017 375mg day G,MD Tablets Atorvastatin 1 by mouth every 90tabs Zaki Bang, 11/11/2016 Calcium day MD 40mg Tablets Ramipril Take 1 Tablet By 90caps Zaki Bang, 12/13/2014 10mg Mouth Once Daily MD Capsules Viagra by mouth 0.5 or 1 12tabs Zaki Bang, 100mg tab 1h before MD Tablets intercourse Proair HFA inhale 2 puffs by 8.500units Zaki Bang, mouth every 6 MD 108(90Base) mcg/Act hours if needed Aerosol for wheezing Immunizations CPT Code Status Date Vaccine Lot # [id number] Given 08/16/2014 Tetanus, Diphtheria Toxoids/Acellular Pertussis Vaccine [...] and I am perfectly fine if the upsetter helper 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 My only request would be that we monitor his liver function tests fairly closely. I will continue to follow along Functional Status Description No Information Available Mental Status Description No Information Available Referrals Description No Information Available
--- OUTSIDE RECORDS SUMMARY | 2019-08-11 07:48 | XMS REPORT | Continuity of Care Document ---
:1955 External Reference #:[id number] Author Name Meir Diez MD (transmitted by agent of provider Carolee Irizarry) Address [address] [place] [id number] Care Team Providers Name Role Phone Zaki Bang MD Care Team Information Hall Supervisor [phone] Problems Active Problems Provider Date Liver function tests abnormal Meir Diez MD Onset: 07/25/2019 Social History Type Date Description Comments Sex Unknown Tobacco Use Start: Unknown Patient has never smoked Smoking Status Reviewed: 07/25/19 Patient has never smoked Allergies, Adverse Reactions, Alerts Active Allergies Reaction Severity Comments Date Penicillin 08/24/2013 Medications Active Medications SIG Qnty Indications Ordering Date Provider Naproxen 1 by mouth twice a 30tabs [...] CPT Code Status Date Vaccine Lot # [id number] Given 08/16/2014 Tetanus, Diphtheria Toxoids/Acellular Pertussis Vaccine [...] and I am perfectly fine if the 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 My only request would be that we monitor his liver function tests fairly closely. I will continue to follow along Functional Status Description No Information Available Mental Status Description No Information Available Referrals Description No Information Available
[2019-08-11 07:57] VITALS: BP 147/87
[2019-08-11] MEDS ORDERED: cefTRIAXone VIAL(*) 1,000 MG VIAL IM ONE (08:11)
[2019-08-11] MEDS ORDERED: Lidocaine 1% MPF ** 5 ML VIAL INJ ONE (08:18)
[2019-08-11] MEDS ORDERED: Acetaminophen TAB* 325 MG PO ONE (08:32)
--- NOTE | 2019-08-11 08:43 | UC ---
HPI Wound/Suture Re-check - HPI Summary HPI Summary: PATIENT WAS HERE 6 DAYS AGO ON 08/05/2019 AND HAD A LACERATION TO HIS RIGHT THUMB REPAIRED. HE PRESENTS TODAY STATING THAT THE WOUND IS STILL OOZING BLOOD AND THAT HIS THUMB IS MORE RED, TENDER AND SWOLLEN. NO FEVER. PATIENT HAD DECLINED X-RAYS AT THAT TIME BUT IS WONDERING IF HE MIGHT NEED IMAGING TODAY. - History Of Current Complaint Chief Complaint: UCSkin Stated Complaint: RECHECK OF THUMB INJURY Time Seen by Provider: 08/11/19 07:59 Hx Obtained From: Patient, Family/Stakeholder Manager - Onset/Duration: Gradual Onset, Lasting Days, Still Present Severity: Moderate Pain Intensity: 4 Pain Scale Used: 0-10 Numeric - Allergies/Home Medications Allergies/Adverse Reactions: Allergies Allergy/AdvReac Type Severity Reaction Status Date / Time Penicillins Allergy Intermediate Rash Verified 08/11/19 07:57 PMH/Surg Hx/FS Hx/Imm Hx Cardiovascular History: Cardiac Disease - 4V CABG, VALVE, Hypertension - Surgical History Surgical History: Yes Surgery Procedure, Year, and Place: RIGHT TOTAL HIP REPLACED-2009. MENISCECTOMY - BOTH KNEES. TOES SURGERIES- dEBRIDEMENT GOUT DEPOSIT AND NGUYEN BUNION REPAIR 03/2017. CARPAL TUNNEL RIGHT WRIST. CABG, MVR, partial jejunalectomy . TONSILS. Shoulder surgery 2016 - Family History Known Family History: Negative: Diabetes - Social History Alcohol Use: Weekly Alcohol Amount: 2-3/week Substance Use Type: None Substance Use Comment - Amount & Last Used: rare Smoking Status (MU): Never Smoked Tobacco Have You Smoked in the Last Year: No - Immunization History Most Recent Influenza Vaccination: never Most Recent Tetanus Shot: 2014 Most Recent Pneumonia Vaccination: 2018 Review of Systems All Other Systems Reviewed And Are Negative: Yes Constitutional: Positive: Negative Skin: Positive: Other - ERYTHEMA, BLOODY DRAINAGE Respiratory: Positive: Negative Cardiovascular: Positive: Negative Gastrointestinal: Positive: Negative Musculoskeletal: Positive: Arthralgia, Decreased ROM, Edema Physical Exam Triage Information Reviewed: Yes Appearance: Well-Appearing, No Pain Distress, Well-Nourished Vital Signs: Initial Vital Signs Temp 98.6 F 08/11/19 07:53 Pulse 100 08/11/19 07:53 Resp 16 08/11/19 07:53 BP 147/87 08/11/19 07:53 Pulse Ox 95 08/11/19 07:53 Vital Signs Reviewed: Yes Eyes: Positive: Conjunctiva Clear ENT: Positive: Hearing grossly normal Neck: Positive: Supple Respiratory: Positive: No respiratory distress, No accessory muscle use Cardiovascular: Positive: Pulses Normal Abdomen Description: Positive: Soft Musculoskeletal: Positive: ROM Limited @ - RIGHT THUMB, Edema @ - RIGHT THUMB, Other: - TTP RIGHT THUMB DIFFUSELY Neurological: Positive: Alert Psychological: Positive: Normal Response To Family, Age Appropriate Behavior Skin: Positive: Other - RIGHT THUMB SWOLLEN, TENDER WITH ERYTHEMA SURROUNDING LACERATION. LACERATION WITH [address] ACTIVELY OOZING BLOOD. NO PURULENT DRAINAGE Diagnostics - Radiology RIGHT THUMB XRAYS Radiology Interpretation Completed By: Radiologist Summary of Radiographic Findings: 1. Dorsal dislocation at the interphalangeal joint with subtle probable small collateral ligament or capsular avulsion fractures based on presence of subtle calcific densities on the lateral view. Surrounding soft tissue swelling. 2. Moderate osteoarthritis from the basal joint through the IP joint. Course/Dx - Course Course Of Treatment: PATIENT PRESENTS 6 DAYS AFTER HAVING LACERATION ON RIGHT THUMB REPAIRED HERE AT THE URGENT CARE AFTER A FALL. HE STATES THE THUMB HAS BECOME INCREASINGLY RED, SWOLLEN AND TENDER. IT IS OOZING BLOOD. PATIENT STATES HE DECLINED X-RAYS AT THE INITIAL EVALUATION. X-RAYS OBTAINED TODAY SHOW DORSAL DISLOCATION AT THE INTERPHALANGEAL JOINT WITH SUBTLE PROBABLE SMALL COLLATERAL LIGAMENT OR CAPSULAR AVULSION FRACTURES BASED ON PRESENCE OF SUBTLE CALCIFIC DENSITIES ON THE LATERAL VIEW. SURROUNDING SOFT TISSUE SWELLING AND MODERATE OSTEOARTHRITIS FROM THE BASAL JOINT THROUGH THE IP JOINT. PATIENT ALSO APPEARS TO HAVE DEVELOPED A CELLULITIS. 1 G ROCEPHIN ADMINISTERED IM HERE IN THE URGENT CARE. RX FOR CEPHALEXIN SENT TO PT PHARMACY. ORTHOPEDICS WAS CONTACTED. RECOMMEND SEND TO THE ER FOR REDUCTION AND FURTHER TREATMENT. PATIENT DECLINES TRANSFER BY AMBULANCE. - Diagnosis Provider Diagnosis: Open dislocation of right thumb, Cellulitis of right thumb - Physician Notification/Consults Discussed Patient Care With: Deacon Harp - TO [facility] BY PRIVATE CAR Time Discussed With Above Provider: 09:20 Instructed by Provider To: Will See In ED Discharge ED - Sign-Out/Discharge Documenting (check all that apply): Patient Departure All imaging exams completed and their final reports reviewed: Yes - Discharge Plan Condition: Stable Disposition: TRANS HIGHER LVL OF CARE FAC Prescriptions: Cephalexin CAP* [Keflex 500 CAP*] 1,000 mg PO BID #28 cap Patient Education Materials: Cellulitis (ED), Finger Dislocation (ED) Referrals: Zaki Bang MD [Primary Care Provider] - Additional Instructions: X-RAYS OF RIGHT THUMB SHOW DORSAL DISLOCATION AT THE INTERPHALANGEAL JOINT WITH SUBTLE PROBABLE SMALL COLLATERAL LIGAMENT OR CAPSULAR AVULSION FRACTURES BASED ON PRESENCE OF SUBTLE CALCIFIC DENSITIES ON THE LATERAL VIEW. SURROUNDING SOFT TISSUE SWELLING. MODERATE OSTEOARTHRITIS FROM THE BASAL JOINT THROUGH THE IP JOINT. THE DISLOCATION NEEDS TO BE REDUCED. GO DIRECTLY TO THE [facility] FROM HERE. IT ALSO APPEARS THAT YOU HAVE DEVELOPED A SKIN INFECTION. YOU RECEIVED 1 G OF ROCEPHIN IM TODAY. PRESCRIPTION FOR KEFLEX HAS BEEN SENT TO YOUR PHARMACY. IF THE ER PHYSICIAN DECIDES TO CHANGE YOUR MEDICATION THEY MAY DO SO. - Billing Disposition and Condition Condition: STABLE Disposition: Trans Higher Lvl of Care Fac
== END 2019-08-11 09:10 | disposition short-term general hospital (02) ==
LOC: UCEAST 07:42
DX: S63.124A Dislocation of interphalangeal joint of right thumb, initial encounter (principal); L03.011 Cellulitis of right finger; I10 Essential (primary) hypertension; M19.041 Primary osteoarthritis, right hand; M79.89 Other specified soft tissue disorders; Z88.0 Allergy status to penicillin; Z95.1 Presence of aortocoronary bypass graft; W01.198A Fall on same level from slipping, tripping and stumbling with subsequent striking against other object, initial encounter; Y92.009 Unspecified place in unspecified non-institutional (private) residence as the place of occurrence of the external cause; E78.00 Pure hypercholesterolemia, unspecified; Z95.2 Presence of prosthetic heart valve; Z96.641 Presence of right artificial hip joint; Z79.899 Other long term (current) drug therapy
CPT/HCPCS: 90472; 96372; 99212; A9270-GY; G0463; J0696